=== PATIENT | female | born 1975 | race African-American/Black ===

== ENCOUNTER 2020-04-10 12:29 | Inpatient (IN) ==
[~2020-04-10 12:29] MED LIST: PIPERACILLIN/TAZOBACTAM 3,375 MG in SODIUM CHLORIDE 0.9% 100 ML IV SCH; VANCOMYCIN INJ 2,000 MG in SODIUM CHLORIDE 0.9% 500 ML IV SCH
[2020-04-10] MEDS ORDERED: SODIUM CHLORIDE 0.9% 1,000 ML IV STA (15:34)
[2020-04-10] MEDS ORDERED: PIPERACILLIN/TAZOBACTAM 3,375 MG in SODIUM CHLORIDE 0.9% 100 ML IV STA (16:10)
[2020-04-10 16:41] LABS: Basophils % 0.2 % (0.0-0.8); Eosinophils # 0.2 10*3/uL (0.0-0.87); Eosinophils % 1.4 % (0.00-10.9); Hematocrit 34.5 VOL% (35.7-47.0); Hemoglobin 10.6 GM/DL (12.0-16.0); Immature Granulocytes % 2.9 %; Lymphocytes # 3.4 10*3/uL (1.4-4.0); Lymphocytes % 19.4 % (21.3-54.2); Mean Corpuscular HGB Conc 30.7 GM/DL (32-36); Mean Corpuscular Volume 80.6 FL (87-102); Mean Platelet Volume 8.9 FL (9.6-12.0); Monocytes % 7.6 % (1.7-12.7); Neutrophils % 68.5 % (38.7-73.9); Platelet Count 383 T/CUMM (130-400); Red Blood Count 4.28 MC/CUMM (3.8-5.5); White Blood Count 17.5 T/CUMM (4-12)
[2020-04-10 16:55] LABS: Apearance,Urine CLEAR (Clear); Bacteria,Urine Occasional /HPF (Few); Bilirubin,Urine Negative (Negative); Blood, Urine Moderate mg/dL (Negative); Glucose,Urine (UA) >=500 mg/dL (Negative); Ketones,Urine Negative (Negative); Nitrite,Urine Negative (Negative); Protein,Urine 100 MG/DL; RBC,Urine 7 /HPF (0-4); Squamous Epithelial Cell,Urine Occasional /HPF (0-10); Urine Color Yellow (Yellow); Urine Specific Gravity 1.025 (1.001-1.035); Urine Urobilinogen < 2.0 EU/DL (0.2-1.0); WBC,Urine 5 /HPF (0-6)
[2020-04-10 17:06] LABS: Eosinophils 1 % (0-10); Lymphocytes 18 % (20-55); Macrocytosis 1+; Microcytosis 1+; Polychromasia Few; Segmented Neutrophils 75 % (50-85); Spherocytes 1+; Total Cells Counted 100
[2020-04-10 17:07] LABS: Platelet Estimate Adequate
[2020-04-10 17:37] LABS: Albumin 1.9 G/DL (3.4-5.0); Bilirubin,Total 0.4 MG/DL (0.2-1.0); Calcium 9.2 MG/DL (8.5-10.1); Osmolality,Calculated 272.2 MOS/KG (273-304); Total Protein 8.2 G/DL (6.4-8.3)
[2020-04-10 17:46] LABS: Sedimentation Rate-Westergren 98 MM/HR (0-20)
[2020-04-10] MEDS ORDERED: VANCOMYCIN INJ 1,000 MG in SODIUM CHLORIDE 0.9% 250 ML IV STA (17:49)
[2020-04-10] MEDS ORDERED: DEXTROSE 50% 25 GM/50 ML VIAL IV PRN (17:54)
[2020-04-10] MEDS ORDERED: GLUCAGON 1 MG VIAL IM PRN (17:54)
[2020-04-10] MEDS ORDERED: ACETAMINOPHEN 325 MG TABLET PO PRN (17:54)
[2020-04-10] MEDS ORDERED: ONDANSETRON 4 MG/2 ML VIAL IV PRN (17:54)
[2020-04-10] MEDS ORDERED: VANCOMYCIN INJ 1,000 MG in SODIUM CHLORIDE 0.9% 250 ML IV ONE ×2 (19:00→21:30)
[2020-04-10] MEDS ORDERED: LIDOCAINE 1%/EPI INJ 20 ML VIAL ONE (19:26)
[2020-04-10] MEDS ORDERED: BUPIVACAINE 0.25% /EPI 10 ML VIAL ONE (19:26)
[2020-04-10] MEDS ORDERED: propofoL 200 MG/20 ML VIAL IV ONE (20:08)
[2020-04-10] MEDS ORDERED: KETAMINE 500 MG/10 ML VIAL ONE (20:08)
[2020-04-10] MEDS ORDERED: SODIUM CHLORIDE 0.9% 1,000 ML IV ONE (20:09)
[2020-04-10] MEDS ORDERED: MIDAZOLAM 2 MG/2 ML VIAL ONE (20:09)
[2020-04-10] MEDS ORDERED: fentaNYL 100 MCG/2 ML VIAL ONE (20:09)
[2020-04-10] MEDS ORDERED: SODIUM CHLORIDE 0.9% 100 ML IV ONE (20:09)
[2020-04-10] MEDS: INSULIN REGULAR 100 UNIT/ML SUBCUT SCH (21:54)
[2020-04-10] MEDS: LACTATED RINGERS 1,000 ML IV SCH (21:57)
[2020-04-11] MEDS: PIPERACILLIN/TAZOBACTAM 3,375 MG in SODIUM CHLORIDE 0.9% 100 ML IV SCH ×3 (01:58→22:59)
[2020-04-11 05:17] LABS: Basophils % 0.3 % (0.0-0.8); Eosinophils # 0.2 10*3/uL (0.0-0.87); Eosinophils % 1.8 % (0.00-10.9); Hematocrit 31.7 VOL% (35.7-47.0); Hemoglobin 9.4 GM/DL (12.0-16.0); Immature Granulocytes % 2.1 %; Immature Granulocytes Absolute 0.28 #; Lymphocytes # 3.3 10*3/uL (1.4-4.0); Lymphocytes % 24.9 % (21.3-54.2); Mean Corpuscular HGB Conc 29.7 GM/DL (32-36); Mean Corpuscular Volume 81.1 FL (87-102); Mean Platelet Volume 8.8 FL (9.6-12.0); Neutrophils % 62.9 % (38.7-73.9); Platelet Count 346 T/CUMM (130-400); Red Blood Count 3.91 MC/CUMM (3.8-5.5); Red Cell Distribution Width 15.1 % (9.3-17.3); White Blood Count 13.4 T/CUMM (4-12)
[2020-04-11 05:38] LABS: Eosinophils 1 % (0-10); Hypochromasia 1+; Lymphocytes 24 % (20-55); Platelet Estimate Adequate; Segmented Neutrophils 68 % (50-85); Total Cells Counted 100
[2020-04-11 05:39] LABS: Microcytosis 1+
[2020-04-11 05:48] LABS: Calcium 8.9 MG/DL (8.5-10.1); Osmolality,Calculated 274.8 MOS/KG (273-304)
[2020-04-11] MEDS: LACTATED RINGERS 1,000 ML IV SCH ×3 (07:11→19:12)
[2020-04-11] MEDS ORDERED: MORPHINE 4 MG/1 ML VIAL IV ONE (07:28)
[2020-04-11] MEDS: INSULIN REGULAR 100 UNIT/ML SUBCUT SCH ×5 (07:49→22:58)
[2020-04-11] MEDS ORDERED: SEMAGLUTIDE 0.25 MG SUBCUT SCH (09:15)
[2020-04-11] MEDS: POTASSIUM CHLORIDE 20 MEQ TABLET PO PRN ×4 (09:23→18:42)
[2020-04-11] MEDS: PANTOPRAZOLE 40 MG TABLET PO SCH (09:24)
[2020-04-11] MEDS: VANCOMYCIN INJ 2,000 MG in SODIUM CHLORIDE 0.9% 500 ML IV SCH ×2 (09:24→20:04)
[2020-04-11] MEDS: SODIUM HYPOCHLORITE 0.25% IRRIG 473 ML BOTTLE TOP SCH (10:50)
[2020-04-11] MEDS ORDERED: carvediloL 6.25 MG TABLET PO ONE (14:00)
[2020-04-11] MEDS: LOSARTAN 50 MG TABLET PO SCH (14:34)
[2020-04-11] MEDS: glipiZIDE 10 MG TABLET PO SCH (17:02)
[2020-04-12] MEDS: LACTATED RINGERS 1,000 ML IV SCH ×3 (02:00→16:45)
[2020-04-12 05:29] LABS: Basophils % 0.3 % (0.0-0.8); Eosinophils # 0.4 10*3/uL (0.0-0.87); Eosinophils % 2.8 % (0.00-10.9); Hematocrit 32.4 VOL% (35.7-47.0); Hemoglobin 9.5 GM/DL (12.0-16.0); Immature Granulocytes % 2.2 %; Immature Granulocytes Absolute 0.28 #; Lymphocytes # 3.1 10*3/uL (1.4-4.0); Lymphocytes % 24.3 % (21.3-54.2); Mean Corpuscular HGB Conc 29.3 GM/DL (32-36); Mean Corpuscular Volume 82.4 FL (87-102); Mean Platelet Volume 8.8 FL (9.6-12.0); Monocytes % 6.5 % (1.7-12.7); Neutrophils % 63.9 % (38.7-73.9); Platelet Count 363 T/CUMM (130-400); Red Blood Count 3.93 MC/CUMM (3.8-5.5); Red Cell Distribution Width 15.2 % (9.3-17.3); White Blood Count 12.7 T/CUMM (4-12)
[2020-04-12] MEDS: PIPERACILLIN/TAZOBACTAM 3,375 MG in SODIUM CHLORIDE 0.9% 100 ML IV SCH ×3 (05:47→23:35)
[2020-04-12 05:49] LABS: % Iron Saturation 11.1 % (18-50)
[2020-04-12 05:50] LABS: Risk Ratio 5.05; VLDL CHOLESTEROL 24.2 MG/DL
[2020-04-12 05:55] LABS: Albumin 1.6 G/DL (3.4-5.0); Bilirubin,Total 1.1 MG/DL (0.2-1.0); Ferritin 373.3 ng/ml (8-252); Osmolality,Calculated 276.7 MOS/KG (273-304); Total Protein 7.5 G/DL (6.4-8.3)
[2020-04-12 06:01] LABS: Folate 5.2 NG/ML (5.4-24.0)
[2020-04-12] MEDS: INSULIN REGULAR 100 UNIT/ML SUBCUT SCH ×4 (08:39→21:33)
[2020-04-12] MEDS: MULTIVITAMIN (CENTRUM) TABLET PO SCH (08:40)
[2020-04-12] MEDS: PANTOPRAZOLE 40 MG TABLET PO SCH (08:41)
[2020-04-12] MEDS: LOSARTAN 50 MG TABLET PO SCH (08:41)
[2020-04-12] MEDS: VANCOMYCIN INJ 2,000 MG in SODIUM CHLORIDE 0.9% 500 ML IV SCH ×2 (08:41→21:32)
[2020-04-12] MEDS: carvediloL 6.25 MG TABLET PO SCH ×2 (08:41→16:44)
[2020-04-12] MEDS: glipiZIDE 10 MG TABLET PO SCH ×2 (08:41→16:45)
[2020-04-12] MEDS: SODIUM HYPOCHLORITE 0.25% IRRIG 473 ML BOTTLE TOP SCH (08:42)
[2020-04-12] MEDS ORDERED: NON-FORMULARY MEDICATION (Dapagliflozin [Farxiga] 10 MG) PO SCH (09:00)
[2020-04-12] MEDS ORDERED: IRON SUCROSE 300 MG in SODIUM CHLORIDE 0.9% 100 ML IV ONE (11:00)
[2020-04-12] MEDS: FERROUS SULFATE 325 MG TABLET PO SCH ×2 (11:56→16:45)
[2020-04-13] MEDS: PIPERACILLIN/TAZOBACTAM 3,375 MG in SODIUM CHLORIDE 0.9% 100 ML IV SCH (06:20)
[2020-04-13 06:26] LABS: Basophils % 0.3 % (0.0-0.8); Eosinophils # 0.3 10*3/uL (0.0-0.87); Eosinophils % 2.3 % (0.00-10.9); Hematocrit 30.7 VOL% (35.7-47.0); Hemoglobin 9.3 GM/DL (12.0-16.0); Immature Granulocytes % 2.5 %; Immature Granulocytes Absolute 0.29 #; Lymphocytes # 2.5 10*3/uL (1.4-4.0); Lymphocytes % 21.2 % (21.3-54.2); Mean Corpuscular HGB Conc 30.3 GM/DL (32-36); Mean Corpuscular Volume 80.6 FL (87-102); Mean Platelet Volume 8.8 FL (9.6-12.0); Monocytes % 5.7 % (1.7-12.7); Platelet Count 369 T/CUMM (130-400); Red Blood Count 3.81 MC/CUMM (3.8-5.5); Red Cell Distribution Width 15.3 % (9.3-17.3); White Blood Count 11.7 T/CUMM (4-12)
[2020-04-13 06:41] LABS: Albumin 1.6 G/DL (3.4-5.0); Bilirubin,Total 0.4 MG/DL (0.2-1.0); Calcium 9.2 MG/DL (8.5-10.1); Ferritin 505.1 ng/ml (8-252); Osmolality,Calculated 276.7 MOS/KG (273-304); Total Protein 7.6 G/DL (6.4-8.3)
[2020-04-13] MEDS: LACTATED RINGERS 1,000 ML IV SCH ×3 (07:19→17:18)
[2020-04-13] MEDS: VANCOMYCIN INJ 2,000 MG in SODIUM CHLORIDE 0.9% 500 ML IV SCH ×2 (09:18→20:45)
[2020-04-13] MEDS: PANTOPRAZOLE 40 MG TABLET PO SCH (09:22)
[2020-04-13] MEDS: INSULIN REGULAR 100 UNIT/ML SUBCUT SCH ×4 (09:22→21:44)
[2020-04-13] MEDS: carvediloL 6.25 MG TABLET PO SCH ×2 (09:22→16:37)
[2020-04-13] MEDS: MULTIVITAMIN (CENTRUM) TABLET PO SCH (09:23)
[2020-04-13] MEDS: FERROUS SULFATE 325 MG TABLET PO SCH ×3 (09:23→16:38)
[2020-04-13] MEDS: glipiZIDE 10 MG TABLET PO SCH ×2 (09:23→16:38)
[2020-04-13] MEDS: SODIUM HYPOCHLORITE 0.25% IRRIG 473 ML BOTTLE TOP SCH (09:23)
[2020-04-13] MEDS: LOSARTAN 50 MG TABLET PO SCH (09:45)
[2020-04-14 07:28] LABS: Basophils % 0.2 % (0.0-0.8); Eosinophils # 0.2 10*3/uL (0.0-0.87); Hematocrit 31.3 VOL% (35.7-47.0); Hemoglobin 9.1 GM/DL (12.0-16.0); Immature Granulocytes % 2.3 %; Immature Granulocytes Absolute 0.27 #; Lymphocytes # 2.4 10*3/uL (1.4-4.0); Lymphocytes % 20.1 % (21.3-54.2); Mean Corpuscular HGB Conc 29.1 GM/DL (32-36); Mean Corpuscular Volume 82.4 FL (87-102); Mean Platelet Volume 8.5 FL (9.6-12.0); Monocytes % 6.3 % (1.7-12.7); Neutrophils % 69.1 % (38.7-73.9); Platelet Count 362 T/CUMM (130-400); Red Cell Distribution Width 15.2 % (9.3-17.3); White Blood Count 11.7 T/CUMM (4-12)
[2020-04-14] MEDS: LACTATED RINGERS 1,000 ML IV SCH ×2 (07:43→16:59)
[2020-04-14] MEDS: VANCOMYCIN INJ 2,000 MG in SODIUM CHLORIDE 0.9% 500 ML IV SCH ×2 (07:45→20:17)
[2020-04-14 07:51] LABS: Albumin 1.6 G/DL (3.4-5.0); Bilirubin,Total 1.1 MG/DL (0.2-1.0); Ferritin 695.6 ng/ml (8-252); Osmolality,Calculated 286.3 MOS/KG (273-304); Total Protein 7.5 G/DL (6.4-8.3)
[2020-04-14] MEDS: MULTIVITAMIN (CENTRUM) TABLET PO SCH (08:52)
[2020-04-14] MEDS: FERROUS SULFATE 325 MG TABLET PO SCH ×3 (08:52→16:48)
[2020-04-14] MEDS: carvediloL 6.25 MG TABLET PO SCH ×2 (08:52→16:48)
[2020-04-14] MEDS: LOSARTAN 50 MG TABLET PO SCH (08:52)
[2020-04-14] MEDS: glipiZIDE 10 MG TABLET PO SCH ×2 (08:52→16:48)
[2020-04-14] MEDS: PANTOPRAZOLE 40 MG TABLET PO SCH (08:52)
[2020-04-14] MEDS: INSULIN REGULAR 100 UNIT/ML SUBCUT SCH ×4 (08:52→20:57)
[2020-04-14] MEDS: SODIUM HYPOCHLORITE 0.25% IRRIG 473 ML BOTTLE TOP SCH (08:53)
[2020-04-14] MEDS: COLLAGENASE OINT 30 GM TUBE TOP SCH (14:36)
[2020-04-15] MEDS: LACTATED RINGERS 1,000 ML IV SCH ×3 (01:06→23:06)
[2020-04-15 06:15] LABS: Basophils % 0.3 % (0.0-0.8); Eosinophils # 0.2 10*3/uL (0.0-0.87); Hematocrit 30.5 VOL% (35.7-47.0); Immature Granulocytes Absolute 0.21 #; Lymphocytes # 2.4 10*3/uL (1.4-4.0); Mean Corpuscular HGB Conc 29.5 GM/DL (32-36); Mean Corpuscular Volume 83.1 FL (87-102); Mean Platelet Volume 8.6 FL (9.6-12.0); Neutrophils % 65.7 % (38.7-73.9); Platelet Count 346 T/CUMM (130-400); Red Blood Count 3.67 MC/CUMM (3.8-5.5); White Blood Count 10.3 T/CUMM (4-12)
[2020-04-15 06:56] LABS: Alanine Aminotransferase 18 U/L (13-56); Albumin 1.6 G/DL (3.4-5.0); Alkaline Phosphatase 117 U/L (45-117); Aspartate Amino Transferase 12 U/L (0-37); Bilirubin,Total < 0.39 MG/DL (0.2-1.0); Blood Urea Nitrogen 7 MG/DL (7-18); Calcium 9.1 MG/DL (8.5-10.1); Estimated Glom Filtration Rate 164 ML/MIN; Ferritin 584.5 ng/ml (8-252); Glucose 215 MG/DL (74-106); Osmolality,Calculated 284.3 MOS/KG (273-304); Total Protein 7.3 G/DL (6.4-8.3)
[2020-04-15] MEDS: INSULIN REGULAR 100 UNIT/ML SUBCUT SCH ×4 (08:55→20:06)
[2020-04-15] MEDS: LOSARTAN 50 MG TABLET PO SCH (08:55)
[2020-04-15] MEDS: PANTOPRAZOLE 40 MG TABLET PO SCH (08:55)
[2020-04-15] MEDS: FERROUS SULFATE 325 MG TABLET PO SCH ×3 (08:55→16:18)
[2020-04-15] MEDS: carvediloL 6.25 MG TABLET PO SCH ×2 (08:55→16:18)
[2020-04-15] MEDS: glipiZIDE 10 MG TABLET PO SCH ×2 (08:55→16:18)
[2020-04-15] MEDS: MULTIVITAMIN (CENTRUM) TABLET PO SCH (08:55)
[2020-04-15] MEDS: SODIUM HYPOCHLORITE 0.25% IRRIG 473 ML BOTTLE TOP SCH (08:56)
[2020-04-15] MEDS: COLLAGENASE OINT 30 GM TUBE TOP SCH (08:56)
[2020-04-15] MEDS: VANCOMYCIN INJ 2,000 MG in SODIUM CHLORIDE 0.9% 500 ML IV SCH (14:28)
[2020-04-16] MEDS: VANCOMYCIN INJ 2,000 MG in SODIUM CHLORIDE 0.9% 500 ML IV SCH ×2 (03:09→20:02)
[2020-04-16] MEDS: LACTATED RINGERS 1,000 ML IV SCH ×3 (05:27→18:22)
[2020-04-16 05:40] LABS: Basophils % 0.2 % (0.0-0.8); Eosinophils # 0.2 10*3/uL (0.0-0.87); Eosinophils % 2.3 % (0.00-10.9); Hemoglobin 8.7 GM/DL (12.0-16.0); Immature Granulocytes % 1.8 %; Immature Granulocytes Absolute 0.17 #; Lymphocytes # 2.8 10*3/uL (1.4-4.0); Lymphocytes % 29.4 % (21.3-54.2); Mean Corpuscular Volume 83.6 FL (87-102); Mean Platelet Volume 8.4 FL (9.6-12.0); Monocytes % 6.1 % (1.7-12.7); Neutrophils % 60.2 % (38.7-73.9); Platelet Count 336 T/CUMM (130-400); Red Blood Count 3.59 MC/CUMM (3.8-5.5); Red Cell Distribution Width 15.2 % (9.3-17.3); White Blood Count 9.6 T/CUMM (4-12)
[2020-04-16 06:07] LABS: Alanine Aminotransferase 16 U/L (13-56); Albumin 1.8 G/DL (3.4-5.0); Alkaline Phosphatase 100 U/L (45-117); Aspartate Amino Transferase 13 U/L (0-37); Bilirubin,Total < 0.39 MG/DL (0.2-1.0); Blood Urea Nitrogen 6 MG/DL (7-18); Calcium 8.4 MG/DL (8.5-10.1); Estimated Glom Filtration Rate 173 ML/MIN; Ferritin 525.3 ng/ml (8-252); Glucose 185 MG/DL (74-106); Osmolality,Calculated 283.3 MOS/KG (273-304); Total Protein 6.3 G/DL (6.4-8.3)
[2020-04-16 06:53] LABS: Eosinophils 2 % (0-10); Lymphocytes 23 % (20-55); Segmented Neutrophils 70 % (50-85); Total Cells Counted 100
[2020-04-16 06:54] LABS: Hypochromasia 2+; Platelet Estimate Normal
[2020-04-16] MEDS: glipiZIDE 10 MG TABLET PO SCH ×2 (09:15→16:54)
[2020-04-16] MEDS: POTASSIUM CHLORIDE 20 MEQ TABLET PO PRN ×3 (09:15→16:53)
[2020-04-16] MEDS: INSULIN REGULAR 100 UNIT/ML SUBCUT SCH ×4 (09:15→20:02)
[2020-04-16] MEDS: SODIUM HYPOCHLORITE 0.25% IRRIG 473 ML BOTTLE TOP SCH (09:16)
[2020-04-16] MEDS: MULTIVITAMIN (CENTRUM) TABLET PO SCH (09:16)
[2020-04-16] MEDS: PANTOPRAZOLE 40 MG TABLET PO SCH (09:16)
[2020-04-16] MEDS: carvediloL 6.25 MG TABLET PO SCH ×2 (09:16→16:53)
[2020-04-16] MEDS: LOSARTAN 50 MG TABLET PO SCH (09:16)
[2020-04-16] MEDS: FERROUS SULFATE 325 MG TABLET PO SCH ×3 (09:16→16:53)
[2020-04-16] MEDS: COLLAGENASE OINT 30 GM TUBE TOP SCH (09:16)
[2020-04-17] MEDS: LACTATED RINGERS 1,000 ML IV SCH ×4 (02:14→20:25)
[2020-04-17 03:20] LABS: Basophils % 0.3 % (0.0-0.8); Eosinophils # 0.2 10*3/uL (0.0-0.87); Hemoglobin 8.9 GM/DL (12.0-16.0); Immature Granulocytes % 1.2 %; Immature Granulocytes Absolute 0.12 #; Lymphocytes # 3.2 10*3/uL (1.4-4.0); Lymphocytes % 31.6 % (21.3-54.2); Mean Corpuscular HGB Conc 29.7 GM/DL (32-36); Mean Corpuscular Volume 82.9 FL (87-102); Mean Platelet Volume 8.2 FL (9.6-12.0); Monocytes % 5.4 % (1.7-12.7); Neutrophils % 59.5 % (38.7-73.9); Platelet Count 308 T/CUMM (130-400); Red Blood Count 3.62 MC/CUMM (3.8-5.5); Red Cell Distribution Width 15.1 % (9.3-17.3)
[2020-04-17 03:30] LABS: PT Patient Result 10.9 SECS (9.8-11.9)
[2020-04-17 03:56] LABS: Alanine Aminotransferase 17 U/L (13-56); Albumin 1.7 G/DL (3.4-5.0); Alkaline Phosphatase 94 U/L (45-117); Aspartate Amino Transferase 13 U/L (0-37); Bilirubin,Total < 0.39 MG/DL (0.2-1.0); Blood Urea Nitrogen 5 MG/DL (7-18); Calcium 8.8 MG/DL (8.5-10.1); Estimated Glom Filtration Rate 164 ML/MIN; Ferritin 468.7 ng/ml (8-252); Glucose 184 MG/DL (74-106); Osmolality,Calculated 282.3 MOS/KG (273-304); Total Protein 7.1 G/DL (6.4-8.3)
[2020-04-17 04:04] LABS: Hypochromasia 1+
[2020-04-17 04:05] LABS: Platelet Estimate Normal; Polychromasia Few
[2020-04-17 05:05] LABS: Sedimentation Rate-Westergren 115 MM/HR (0-20)
[2020-04-17] MEDS ORDERED: LIDOCAINE 1% 20 ML VIAL ONE ×2 (08:29→08:31)
[2020-04-17] MEDS: INSULIN REGULAR 100 UNIT/ML SUBCUT SCH ×4 (08:31→20:25)
[2020-04-17] MEDS: HYDROmorphone 2 MG/1 ML VIAL IV PRN ×4 (09:15→09:30)
[2020-04-17] MEDS ORDERED: KETAMINE 500 MG/10 ML VIAL ONE (09:22)
[2020-04-17] MEDS ORDERED: fentaNYL 100 MCG/2 ML VIAL ONE (09:22)
[2020-04-17] MEDS ORDERED: propofoL 200 MG/20 ML VIAL IV ONE (09:22)
[2020-04-17] MEDS ORDERED: MIDAZOLAM 2 MG/2 ML VIAL ONE (09:23)
[2020-04-17] MEDS ORDERED: HYDROmorphone 2 MG/1 ML VIAL ONE (09:23)
[2020-04-17] MEDS ORDERED: LABETALOL 20 MG/4 ML SYRINGE IV ONE (09:53)
[2020-04-17] MEDS: COLLAGENASE OINT 30 GM TUBE TOP SCH (10:07)
[2020-04-17] MEDS: SODIUM HYPOCHLORITE 0.25% IRRIG 473 ML BOTTLE TOP SCH (10:07)
[2020-04-17] MEDS: LOSARTAN 50 MG TABLET PO SCH (10:20)
[2020-04-17] MEDS: glipiZIDE 10 MG TABLET PO SCH ×2 (10:20→16:10)
[2020-04-17] MEDS: FERROUS SULFATE 325 MG TABLET PO SCH ×3 (10:20→16:10)
[2020-04-17] MEDS: carvediloL 6.25 MG TABLET PO SCH ×2 (10:20→16:10)
[2020-04-17] MEDS: PANTOPRAZOLE 40 MG TABLET PO SCH (10:20)
[2020-04-17] MEDS: MULTIVITAMIN (CENTRUM) TABLET PO SCH (10:20)
[2020-04-17] MEDS ORDERED: DEXTROSE 50% 25 GM/50 ML VIAL IV PRN (11:21)
[2020-04-17] MEDS: VANCOMYCIN INJ 2,000 MG in SODIUM CHLORIDE 0.9% 500 ML IV SCH (15:07)
[2020-04-17] MEDS ORDERED: INSULIN GLARGINE 100 UNIT/ML SUBCUT SCH (21:00)
[2020-04-18 05:05] LABS: Basophils % 0.3 % (0.0-0.8); Eosinophils # 0.2 10*3/uL (0.0-0.87); Eosinophils % 2.1 % (0.00-10.9); Hematocrit 27.3 VOL% (35.7-47.0); Immature Granulocytes % 0.7 %; Immature Granulocytes Absolute 0.07 #; Lymphocytes # 2.8 10*3/uL (1.4-4.0); Lymphocytes % 28.5 % (21.3-54.2); Mean Corpuscular HGB Conc 29.3 GM/DL (32-36); Mean Corpuscular Volume 82.2 FL (87-102); Mean Platelet Volume 8.6 FL (9.6-12.0); Monocytes % 5.2 % (1.7-12.7); Neutrophils % 63.2 % (38.7-73.9); Platelet Count 302 T/CUMM (130-400); Red Blood Count 3.32 MC/CUMM (3.8-5.5); Red Cell Distribution Width 15.2 % (9.3-17.3); White Blood Count 9.8 T/CUMM (4-12)
[2020-04-18 05:14] LABS: INR 1.1; PT Patient Result 11.4 SECS (9.8-11.9)
[2020-04-18] MEDS: LACTATED RINGERS 1,000 ML IV SCH (06:05)
[2020-04-18 06:14] LABS: Albumin 1.8 G/DL (3.4-5.0); Bilirubin,Total 0.4 MG/DL (0.2-1.0); Calcium 8.5 MG/DL (8.5-10.1); Ferritin 474.2 ng/ml (8-252); Osmolality,Calculated 285.1 MOS/KG (273-304); Sedimentation Rate-Westergren 118 MM/HR (0-20); Total Protein 6.2 G/DL (6.4-8.3)
[2020-04-18] MEDS: INSULIN REGULAR 100 UNIT/ML SUBCUT SCH ×4 (07:58→21:22)
[2020-04-18] MEDS: glipiZIDE 10 MG TABLET PO SCH ×2 (07:59→17:28)
[2020-04-18] MEDS: PANTOPRAZOLE 40 MG TABLET PO SCH (07:59)
[2020-04-18] MEDS: MULTIVITAMIN (CENTRUM) TABLET PO SCH (07:59)
[2020-04-18] MEDS: LOSARTAN 50 MG TABLET PO SCH (08:00)
[2020-04-18] MEDS: FERROUS SULFATE 325 MG TABLET PO SCH ×3 (08:00→17:28)
[2020-04-18] MEDS: carvediloL 6.25 MG TABLET PO SCH ×2 (08:00→17:29)
[2020-04-18] MEDS: COLLAGENASE OINT 30 GM TUBE TOP SCH (10:15)
[2020-04-18] MEDS: FOLIC ACID 1 MG TABLET PO SCH (10:15)
[2020-04-18] MEDS: SODIUM HYPOCHLORITE 0.25% IRRIG 473 ML BOTTLE TOP SCH (10:15)
[2020-04-18] MEDS: VANCOMYCIN INJ 2,000 MG in SODIUM CHLORIDE 0.9% 500 ML IV SCH (11:37)
[2020-04-18] MEDS: INSULIN GLARGINE 100 UNIT/ML SUBCUT SCH (21:23)
[2020-04-18 23:56] LABS: Specimen Source NASAL
[2020-04-19] MEDS: VANCOMYCIN INJ 2,000 MG in SODIUM CHLORIDE 0.9% 500 ML IV SCH ×2 (03:23→22:49)
[2020-04-19 06:06] LABS: Basophils % 0.3 % (0.0-0.8); Eosinophils # 0.2 10*3/uL (0.0-0.87); Hematocrit 26.4 VOL% (35.7-47.0); Hemoglobin 7.7 GM/DL (12.0-16.0); Immature Granulocytes % 0.8 %; Immature Granulocytes Absolute 0.07 #; Lymphocytes # 3.1 10*3/uL (1.4-4.0); Lymphocytes % 34.5 % (21.3-54.2); Mean Corpuscular HGB Conc 29.2 GM/DL (32-36); Mean Corpuscular Volume 83.5 FL (87-102); Mean Platelet Volume 8.2 FL (9.6-12.0); Monocytes % 4.9 % (1.7-12.7); Neutrophils % 57.5 % (38.7-73.9); Platelet Count 250 T/CUMM (130-400); Red Blood Count 3.16 MC/CUMM (3.8-5.5); Red Cell Distribution Width 15.1 % (9.3-17.3); White Blood Count 8.9 T/CUMM (4-12)
[2020-04-19 06:16] LABS: INR 1.1; PT Patient Result 11.5 SECS (9.8-11.9)
[2020-04-19 06:36] LABS: Hypochromasia 2+; Microcytosis Slight; Platelet Estimate Adequate
[2020-04-19 06:58] LABS: Alanine Aminotransferase 20 U/L (13-56); Albumin 1.7 G/DL (3.4-5.0); Alkaline Phosphatase 95 U/L (45-117); Aspartate Amino Transferase 17 U/L (0-37); Bilirubin,Total < 0.39 MG/DL (0.2-1.0); Blood Urea Nitrogen 5 MG/DL (7-18); Calcium 8.2 MG/DL (8.5-10.1); Estimated Glom Filtration Rate 173 ML/MIN; Ferritin 386.2 ng/ml (8-252); Glucose 144 MG/DL (74-106); Osmolality,Calculated 280.3 MOS/KG (273-304)
[2020-04-19 08:05] LABS: Sedimentation Rate-Westergren 116 MM/HR (0-20)
[2020-04-19] MEDS: MULTIVITAMIN (CENTRUM) TABLET PO SCH (09:45)
[2020-04-19] MEDS: glipiZIDE 10 MG TABLET PO SCH ×2 (09:45→18:12)
[2020-04-19] MEDS: FERROUS SULFATE 325 MG TABLET PO SCH ×3 (09:45→18:12)
[2020-04-19] MEDS: carvediloL 6.25 MG TABLET PO SCH ×2 (09:46→18:12)
[2020-04-19] MEDS: PANTOPRAZOLE 40 MG TABLET PO SCH (09:46)
[2020-04-19] MEDS: INSULIN REGULAR 100 UNIT/ML SUBCUT SCH ×4 (09:46→20:24)
[2020-04-19] MEDS: LOSARTAN 50 MG TABLET PO SCH (09:46)
[2020-04-19] MEDS: FOLIC ACID 1 MG TABLET PO SCH (09:46)
[2020-04-19] MEDS: COLLAGENASE OINT 30 GM TUBE TOP SCH (11:50)
[2020-04-19] MEDS: SODIUM HYPOCHLORITE 0.25% IRRIG 473 ML BOTTLE TOP SCH (11:50)
[2020-04-19] MEDS: INSULIN GLARGINE 100 UNIT/ML SUBCUT SCH (20:21)
[2020-04-20 05:39] LABS: Basophils % 0.5 % (0.0-0.8); Eosinophils # 0.2 10*3/uL (0.0-0.87); Eosinophils % 2.5 % (0.00-10.9); Hematocrit 26.4 VOL% (35.7-47.0); Hemoglobin 7.7 GM/DL (12.0-16.0); Immature Granulocytes % 0.6 %; Lymphocytes # 3.1 10*3/uL (1.4-4.0); Lymphocytes % 36.6 % (21.3-54.2); Mean Corpuscular HGB Conc 29.2 GM/DL (32-36); Mean Corpuscular Volume 82.8 FL (87-102); Monocytes % 4.9 % (1.7-12.7); Neutrophils % 54.9 % (38.7-73.9); Platelet Count 239 T/CUMM (130-400); Red Blood Count 3.19 MC/CUMM (3.8-5.5); Red Cell Distribution Width 15.6 % (9.3-17.3); White Blood Count 8.3 T/CUMM (4-12)
[2020-04-20 05:40] LABS: Immature Granulocytes Absolute 0.05 #
[2020-04-20 06:15] LABS: Albumin 1.8 G/DL (3.4-5.0); Bilirubin,Total 1.2 MG/DL (0.2-1.0); Calcium 8.8 MG/DL (8.5-10.1); Total Protein 6.7 G/DL (6.4-8.3)
[2020-04-20 07:21] LABS: Sedimentation Rate-Westergren 128 MM/HR (0-20)
[2020-04-20 07:49] LABS: Eosinophils 2 % (0-10); Hypochromasia 2+; Lymphocytes 31 % (20-55); Microcytosis Slight; Nucleated Red Blood Cells 1 (0-5); Platelet Estimate Adequate; Segmented Neutrophils 56 % (50-85); Total Cells Counted 100
[2020-04-20] MEDS: INSULIN REGULAR 100 UNIT/ML SUBCUT SCH ×4 (08:29→21:02)
[2020-04-20] MEDS: LOSARTAN 50 MG TABLET PO SCH (08:31)
[2020-04-20] MEDS: carvediloL 6.25 MG TABLET PO SCH ×2 (08:31→16:49)
[2020-04-20] MEDS: glipiZIDE 10 MG TABLET PO SCH ×2 (08:31→16:49)
[2020-04-20] MEDS: MULTIVITAMIN (CENTRUM) TABLET PO SCH (08:31)
[2020-04-20] MEDS: FERROUS SULFATE 325 MG TABLET PO SCH ×3 (08:31→16:49)
[2020-04-20] MEDS: FOLIC ACID 1 MG TABLET PO SCH (08:31)
[2020-04-20] MEDS: PANTOPRAZOLE 40 MG TABLET PO SCH (08:31)
[2020-04-20] MEDS: SODIUM HYPOCHLORITE 0.25% IRRIG 473 ML BOTTLE TOP SCH (11:40)
[2020-04-20] MEDS: COLLAGENASE OINT 30 GM TUBE TOP SCH (11:40)
[2020-04-20] MEDS: VANCOMYCIN INJ 2,000 MG in SODIUM CHLORIDE 0.9% 500 ML IV SCH (15:29)
[2020-04-20] MEDS: INSULIN GLARGINE 100 UNIT/ML SUBCUT SCH (21:03)
[2020-04-21 03:56] LABS: Basophils % 0.4 % (0.0-0.8); Eosinophils # 0.2 10*3/uL (0.0-0.87); Eosinophils % 2.6 % (0.00-10.9); Hematocrit 26.2 VOL% (35.7-47.0); Hemoglobin 7.7 GM/DL (12.0-16.0); Immature Granulocytes % 0.4 %; Immature Granulocytes Absolute 0.03 #; Lymphocytes # 2.7 10*3/uL (1.4-4.0); Mean Corpuscular HGB Conc 29.4 GM/DL (32-36); Mean Corpuscular Volume 82.6 FL (87-102); Mean Platelet Volume 8.4 FL (9.6-12.0); Monocytes % 5.5 % (1.7-12.7); Neutrophils % 59.1 % (38.7-73.9); Platelet Count 233 T/CUMM (130-400); Red Blood Count 3.17 MC/CUMM (3.8-5.5); Red Cell Distribution Width 15.5 % (9.3-17.3); White Blood Count 8.4 T/CUMM (4-12)
[2020-04-21 04:22] LABS: Alanine Aminotransferase 15 U/L (13-56); Albumin 1.7 G/DL (3.4-5.0); Alkaline Phosphatase 83 U/L (45-117); Aspartate Amino Transferase 11 U/L (0-37); Bilirubin,Total < 0.39 MG/DL (0.2-1.0); Blood Urea Nitrogen 6 MG/DL (7-18); Calcium 8.2 MG/DL (8.5-10.1); Estimated Glom Filtration Rate 174 ML/MIN; Glucose 141 MG/DL (74-106); Osmolality,Calculated 282.1 MOS/KG (273-304); Total Protein 6.4 G/DL (6.4-8.3)
[2020-04-21 06:59] LABS: Sedimentation Rate-Westergren 105 MM/HR (0-20)
[2020-04-21] MEDS: LOSARTAN 50 MG TABLET PO SCH (08:32)
[2020-04-21] MEDS: carvediloL 6.25 MG TABLET PO SCH ×2 (08:32→16:32)
[2020-04-21] MEDS: FOLIC ACID 1 MG TABLET PO SCH (08:32)
[2020-04-21] MEDS: FERROUS SULFATE 325 MG TABLET PO SCH ×3 (08:32→16:31)
[2020-04-21] MEDS: MULTIVITAMIN (CENTRUM) TABLET PO SCH (08:32)
[2020-04-21] MEDS: glipiZIDE 10 MG TABLET PO SCH ×2 (08:32→16:31)
[2020-04-21] MEDS: PANTOPRAZOLE 40 MG TABLET PO SCH (08:32)
[2020-04-21] MEDS: SODIUM HYPOCHLORITE 0.25% IRRIG 473 ML BOTTLE TOP SCH (09:17)
[2020-04-21] MEDS: COLLAGENASE OINT 30 GM TUBE TOP SCH (09:18)
[2020-04-21] MEDS: INSULIN REGULAR 100 UNIT/ML SUBCUT SCH ×4 (09:27→20:58)
[2020-04-21] MEDS: VANCOMYCIN INJ 2,000 MG in SODIUM CHLORIDE 0.9% 500 ML IV SCH (09:48)
[2020-04-21] MEDS: INSULIN GLARGINE 100 UNIT/ML SUBCUT SCH (20:59)
[2020-04-22] MEDS: VANCOMYCIN INJ 2,000 MG in SODIUM CHLORIDE 0.9% 500 ML IV SCH ×2 (03:02→21:17)
[2020-04-22] MEDS: glipiZIDE 10 MG TABLET PO SCH ×2 (09:08→16:56)
[2020-04-22] MEDS: carvediloL 6.25 MG TABLET PO SCH ×2 (09:08→16:56)
[2020-04-22] MEDS: INSULIN REGULAR 100 UNIT/ML SUBCUT SCH ×4 (09:08→20:25)
[2020-04-22] MEDS: PANTOPRAZOLE 40 MG TABLET PO SCH (09:08)
[2020-04-22] MEDS: MULTIVITAMIN (CENTRUM) TABLET PO SCH (09:08)
[2020-04-22] MEDS: FOLIC ACID 1 MG TABLET PO SCH (09:08)
[2020-04-22] MEDS: SODIUM HYPOCHLORITE 0.25% IRRIG 473 ML BOTTLE TOP SCH (09:08)
[2020-04-22] MEDS: LOSARTAN 50 MG TABLET PO SCH (09:08)
[2020-04-22] MEDS: FERROUS SULFATE 325 MG TABLET PO SCH ×3 (09:08→16:56)
[2020-04-22] MEDS: COLLAGENASE OINT 30 GM TUBE TOP SCH (09:08)
[2020-04-22] MEDS: INSULIN GLARGINE 100 UNIT/ML SUBCUT SCH (20:26)
[2020-04-23] MEDS: INSULIN REGULAR 100 UNIT/ML SUBCUT SCH ×4 (07:52→20:09)
[2020-04-23] MEDS: PANTOPRAZOLE 40 MG TABLET PO SCH (09:13)
[2020-04-23] MEDS: glipiZIDE 10 MG TABLET PO SCH ×2 (09:13→16:43)
[2020-04-23] MEDS: LOSARTAN 50 MG TABLET PO SCH (09:13)
[2020-04-23] MEDS: carvediloL 6.25 MG TABLET PO SCH ×2 (09:13→16:43)
[2020-04-23] MEDS: MULTIVITAMIN (CENTRUM) TABLET PO SCH (09:13)
[2020-04-23] MEDS: SODIUM HYPOCHLORITE 0.25% IRRIG 473 ML BOTTLE TOP SCH (09:13)
[2020-04-23] MEDS: COLLAGENASE OINT 30 GM TUBE TOP SCH (09:13)
[2020-04-23] MEDS: FOLIC ACID 1 MG TABLET PO SCH (09:13)
[2020-04-23] MEDS: FERROUS SULFATE 325 MG TABLET PO SCH ×3 (09:13→16:43)
[2020-04-23] MEDS: VANCOMYCIN INJ 2,000 MG in SODIUM CHLORIDE 0.9% 500 ML IV SCH (12:06)
[2020-04-23] MEDS: INSULIN GLARGINE 100 UNIT/ML SUBCUT SCH (21:00)
[2020-04-24] MEDS: VANCOMYCIN INJ 2,000 MG in SODIUM CHLORIDE 0.9% 500 ML IV SCH ×3 (00:24→21:58)
[2020-04-24 04:49] LABS: Calcium 8.6 MG/DL (8.5-10.1); Osmolality,Calculated 281.1 MOS/KG (273-304)
[2020-04-24] MEDS: INSULIN REGULAR 100 UNIT/ML SUBCUT SCH ×4 (08:55→22:13)
[2020-04-24] MEDS: MULTIVITAMIN (CENTRUM) TABLET PO SCH (08:56)
[2020-04-24] MEDS: carvediloL 6.25 MG TABLET PO SCH ×2 (08:56→16:38)
[2020-04-24] MEDS: PANTOPRAZOLE 40 MG TABLET PO SCH (08:56)
[2020-04-24] MEDS: glipiZIDE 10 MG TABLET PO SCH ×2 (08:56→17:14)
[2020-04-24] MEDS: SODIUM HYPOCHLORITE 0.25% IRRIG 473 ML BOTTLE TOP SCH (08:56)
[2020-04-24] MEDS: FERROUS SULFATE 325 MG TABLET PO SCH ×3 (08:56→16:38)
[2020-04-24] MEDS: LOSARTAN 50 MG TABLET PO SCH (08:56)
[2020-04-24] MEDS: FOLIC ACID 1 MG TABLET PO SCH (08:56)
[2020-04-24] MEDS: COLLAGENASE OINT 30 GM TUBE TOP SCH (08:57)
[2020-04-24] MEDS: INSULIN GLARGINE 100 UNIT/ML SUBCUT SCH (22:13)
[2020-04-25] MEDS: VANCOMYCIN INJ 2,000 MG in SODIUM CHLORIDE 0.9% 500 ML IV SCH (09:08)
[2020-04-25] MEDS: PANTOPRAZOLE 40 MG TABLET PO SCH (09:09)
[2020-04-25] MEDS: FERROUS SULFATE 325 MG TABLET PO SCH ×2 (09:09→12:13)
[2020-04-25] MEDS: FOLIC ACID 1 MG TABLET PO SCH (09:09)
[2020-04-25] MEDS: MULTIVITAMIN (CENTRUM) TABLET PO SCH (09:09)
[2020-04-25] MEDS: glipiZIDE 10 MG TABLET PO SCH (09:09)
[2020-04-25] MEDS: carvediloL 6.25 MG TABLET PO SCH (09:09)
[2020-04-25] MEDS: LOSARTAN 50 MG TABLET PO SCH (09:09)
[2020-04-25] MEDS: SODIUM HYPOCHLORITE 0.25% IRRIG 473 ML BOTTLE TOP SCH (09:09)
[2020-04-25] MEDS: COLLAGENASE OINT 30 GM TUBE TOP SCH (09:10)
[2020-04-25] MEDS: INSULIN REGULAR 100 UNIT/ML SUBCUT SCH ×2 (09:10→12:12)
[2020-04-25 11:39] VITALS: BP 140/79
== END 2020-04-25 14:45 | DRG 907 ==
LOC: N.ED 12:29 → N.EDINP 17:54 → N.2E 20:30
PROVIDERS: ADMIT Surgery; ATTEND Surgery

== ENCOUNTER 2020-08-06 15:11 | Inpatient (IN) ==
[2020-08-06 16:32] LABS: Basophils % 0.1 % (0.0-0.8); Eosinophils # 0.1 10*3/uL (0.0-0.87); Eosinophils % 0.6 % (0.00-10.9); Hematocrit 23.7 VOL% (35.7-47.0); Hemoglobin 7.2 GM/DL (12.0-16.0); Immature Granulocytes % 1.3 %; Immature Granulocytes Absolute 0.23 #; Lymphocytes # 1.8 10*3/uL (1.4-4.0); Lymphocytes % 10.2 % (21.3-54.2); Mean Corpuscular HGB Conc 30.4 GM/DL (32-36); Mean Corpuscular Volume 70.3 FL (87-102); Mean Platelet Volume 8.6 FL (9.6-12.0); Monocytes % 4.5 % (1.7-12.7); Neutrophils % 83.3 % (38.7-73.9); Platelet Count 431 T/CUMM (130-400); Red Blood Count 3.37 MC/CUMM (3.8-5.5); Red Cell Distribution Width 17.2 % (9.3-17.3)
[2020-08-06 16:50] LABS: Calcium 8.7 MG/DL (8.5-10.1); Osmolality,Calculated 281.4 MOS/KG (273-304)
[2020-08-06 17:01] LABS: Lymphocytes 7 % (20-55); Segmented Neutrophils 88 % (50-85); Total Cells Counted 100
[2020-08-06] MEDS ORDERED: ACETAMINOPHEN 500 MG TABLET PO STA (17:01)
[2020-08-06 17:02] LABS: Anisocytosis Slight; Hypochromasia 1+; Platelet Estimate Adequate; Polychromasia Few
[2020-08-06] MEDS ORDERED: PIPERACILLIN/TAZOBACTAM 3,375 MG in SODIUM CHLORIDE 0.9% 100 ML IV STA (17:28)
[2020-08-06 17:35] LABS: Sedimentation Rate-Westergren 130 MM/HR (0-20)
[2020-08-06] MEDS ORDERED: DEXTROSE 50% 25 GM/50 ML VIAL IV PRN (18:18)
[2020-08-06] MEDS ORDERED: GLUCAGON 1 MG VIAL IM PRN (18:18)
[2020-08-06] MEDS ORDERED: ENOXAPARIN 40 MG/0.4 ML SYRINGE SUBCUT SCH (21:00)
[2020-08-06] MEDS: SODIUM CHLORIDE 0.9% 1,000 ML IV SCH (22:07)
[2020-08-06] MEDS: INSULIN GLARGINE 100 UNIT/ML SUBCUT SCH (22:07)
[2020-08-06] MEDS: carvediloL 3.125 MG TABLET PO SCH (22:07)
[2020-08-06] MEDS: VANCOMYCIN INJ 2,000 MG in SODIUM CHLORIDE 0.9% 500 ML IV SCH (22:10)
[2020-08-06] MEDS: INSULIN REGULAR 100 UNIT/ML SUBCUT SCH (22:20)
[2020-08-06] MEDS: INSULIN LISPRO 100 UNIT/ML SUBCUT SCH (22:22)
[2020-08-07] MEDS: PIPERACILLIN/TAZOBACTAM 3,375 MG in SODIUM CHLORIDE 0.9% 100 ML IV SCH ×3 (02:51→19:18)
[2020-08-07 05:47] LABS: Basophils % 0.2 % (0.0-0.8); Eosinophils # 0.1 10*3/uL (0.0-0.87); Eosinophils % 0.6 % (0.00-10.9); Hematocrit 21.1 VOL% (35.7-47.0); Immature Granulocytes % 1.1 %; Immature Granulocytes Absolute 0.18 #; Lymphocytes # 2.3 10*3/uL (1.4-4.0); Lymphocytes % 13.3 % (21.3-54.2); Mean Corpuscular HGB Conc 30.3 GM/DL (32-36); Mean Corpuscular Volume 70.8 FL (87-102); Mean Platelet Volume 8.8 FL (9.6-12.0); Monocytes % 4.4 % (1.7-12.7); Neutrophils % 80.4 % (38.7-73.9); Platelet Count 414 T/CUMM (130-400); Red Blood Count 2.98 MC/CUMM (3.8-5.5); Red Cell Distribution Width 17.3 % (9.3-17.3)
[2020-08-07 05:59] LABS: Hemoglobin 6.4 GM/DL (12.0-16.0)
[2020-08-07 06:08] LABS: Calcium 8.7 MG/DL (8.5-10.1); Osmolality,Calculated 281.8 MOS/KG (273-304)
[2020-08-07] MEDS ORDERED: SODIUM CHLORIDE 0.9% 1,000 ML IV PRN (06:40)
[2020-08-07] MEDS ORDERED: ACETAMINOPHEN 325 MG TABLET PO PRN (08:57)
[2020-08-07] MEDS: carvediloL 3.125 MG TABLET PO SCH ×2 (09:02→21:59)
[2020-08-07] MEDS: PANTOPRAZOLE 40 MG TABLET PO SCH (09:02)
[2020-08-07] MEDS: INSULIN LISPRO 100 UNIT/ML SUBCUT SCH ×4 (09:02→21:59)
[2020-08-07] MEDS: LOSARTAN 50 MG TABLET PO SCH (09:02)
[2020-08-07] MEDS: FERROUS SULFATE 325 MG TABLET PO SCH ×3 (09:02→19:18)
[2020-08-07] MEDS: INSULIN REGULAR 100 UNIT/ML SUBCUT SCH ×4 (09:03→21:59)
[2020-08-07] MEDS: ONDANSETRON 4 MG/2 ML VIAL IV PRN (10:48)
[2020-08-07] MEDS: SODIUM HYPOCHLORITE 0.25% IRRIG 473 ML BOTTLE TOP SCH (11:55)
[2020-08-07] MEDS: VANCOMYCIN INJ 2,000 MG in SODIUM CHLORIDE 0.9% 500 ML IV SCH (17:11)
[2020-08-07] MEDS: INSULIN GLARGINE 100 UNIT/ML SUBCUT SCH (22:00)
[2020-08-07 22:31] LABS: Hematocrit 26.5 VOL% (35.7-47.0)
[2020-08-07 22:33] LABS: Hemoglobin 8.2 GM/DL (12.0-16.0)
[2020-08-08] MEDS: VANCOMYCIN INJ 2,000 MG in SODIUM CHLORIDE 0.9% 500 ML IV SCH ×2 (00:19→09:47)
[2020-08-08] MEDS: SODIUM CHLORIDE 0.9% 1,000 ML IV SCH ×4 (02:01→21:00)
[2020-08-08] MEDS: PIPERACILLIN/TAZOBACTAM 3,375 MG in SODIUM CHLORIDE 0.9% 100 ML IV SCH ×3 (03:17→20:59)
[2020-08-08] MEDS ORDERED: propofoL 200 MG/20 ML VIAL IV ONE (06:37)
[2020-08-08] MEDS ORDERED: LIDOCAINE 2% 5 ML VIAL ONE (06:37)
[2020-08-08] MEDS ORDERED: fentaNYL 100 MCG/2 ML VIAL ONE (06:37)
[2020-08-08] MEDS ORDERED: MIDAZOLAM 2 MG/2 ML VIAL ONE ×2 (06:37→07:07)
[2020-08-08] MEDS ORDERED: DEXMEDETOMIDINE 200 MCG/2 ML VIAL ONE (07:03)
[2020-08-08] MEDS ORDERED: KETAMINE 500 MG/10 ML VIAL ONE (07:08)
[2020-08-08 07:12] LABS: Basophils % 0.2 % (0.0-0.8); Eosinophils # 0.4 10*3/uL (0.0-0.87); Eosinophils % 2.2 % (0.00-10.9); Hematocrit 25.1 VOL% (35.7-47.0); Hemoglobin 7.7 GM/DL (12.0-16.0); Immature Granulocytes % 1.4 %; Immature Granulocytes Absolute 0.25 #; Lymphocytes # 2.2 10*3/uL (1.4-4.0); Lymphocytes % 12.6 % (21.3-54.2); Mean Corpuscular HGB Conc 30.7 GM/DL (32-36); Mean Corpuscular Volume 74.3 FL (87-102); Mean Platelet Volume 8.5 FL (9.6-12.0); Monocytes % 4.1 % (1.7-12.7); Neutrophils % 79.5 % (38.7-73.9); Platelet Count 402 T/CUMM (130-400); Red Blood Count 3.38 MC/CUMM (3.8-5.5); Red Cell Distribution Width 17.9 % (9.3-17.3); White Blood Count 17.7 T/CUMM (4-12)
[2020-08-08] MEDS ORDERED: ONDANSETRON 4 MG/2 ML VIAL ONE (07:12)
[2020-08-08 07:28] LABS: Calcium 8.7 MG/DL (8.5-10.1); Osmolality,Calculated 278.7 MOS/KG (273-304)
[2020-08-08] MEDS: carvediloL 3.125 MG TABLET PO SCH ×2 (09:46→20:57)
[2020-08-08] MEDS: FERROUS SULFATE 325 MG TABLET PO SCH ×3 (09:46→16:30)
[2020-08-08] MEDS: PANTOPRAZOLE 40 MG TABLET PO SCH (09:46)
[2020-08-08] MEDS: LOSARTAN 50 MG TABLET PO SCH (09:46)
[2020-08-08] MEDS: INSULIN LISPRO 100 UNIT/ML SUBCUT SCH ×4 (09:47→21:00)
[2020-08-08] MEDS: INSULIN REGULAR 100 UNIT/ML SUBCUT SCH ×4 (09:47→20:59)
[2020-08-08] MEDS: SODIUM HYPOCHLORITE 0.25% IRRIG 473 ML BOTTLE TOP SCH (10:31)
[2020-08-08] MEDS: ONDANSETRON 4 MG/2 ML VIAL IV PRN (12:55)
[2020-08-08] MEDS: INSULIN GLARGINE 100 UNIT/ML SUBCUT SCH (20:58)
[2020-08-09] MEDS: PIPERACILLIN/TAZOBACTAM 3,375 MG in SODIUM CHLORIDE 0.9% 100 ML IV SCH (05:48)
[2020-08-09] MEDS: SODIUM CHLORIDE 0.9% 1,000 ML IV SCH ×2 (05:49→19:06)
[2020-08-09 06:38] LABS: Calcium 8.5 MG/DL (8.5-10.1); Osmolality,Calculated 281.8 MOS/KG (273-304)
[2020-08-09] MEDS: LOSARTAN 50 MG TABLET PO SCH (09:06)
[2020-08-09] MEDS: PANTOPRAZOLE 40 MG TABLET PO SCH (09:06)
[2020-08-09] MEDS: carvediloL 3.125 MG TABLET PO SCH ×2 (09:06→20:52)
[2020-08-09] MEDS: FERROUS SULFATE 325 MG TABLET PO SCH ×3 (09:06→16:49)
[2020-08-09] MEDS: INSULIN REGULAR 100 UNIT/ML SUBCUT SCH ×4 (09:07→21:00)
[2020-08-09] MEDS: SODIUM HYPOCHLORITE 0.25% IRRIG 473 ML BOTTLE TOP SCH (09:07)
[2020-08-09] MEDS: INSULIN LISPRO 100 UNIT/ML SUBCUT SCH ×4 (09:07→21:00)
[2020-08-09] MEDS: cefTRIAXone 2,000 MG in SYRINGE 1 EACH IV SCH (15:03)
[2020-08-09] MEDS: INSULIN GLARGINE 100 UNIT/ML SUBCUT SCH (21:00)
[2020-08-10] MEDS: SODIUM CHLORIDE 0.9% 1,000 ML IV SCH ×2 (03:30→11:45)
[2020-08-10 06:22] LABS: Basophils % 0.2 % (0.0-0.8); Eosinophils # 0.4 10*3/uL (0.0-0.87); Eosinophils % 2.5 % (0.00-10.9); Hematocrit 21.1 VOL% (35.7-47.0); Immature Granulocytes % 1.3 %; Immature Granulocytes Absolute 0.21 #; Lymphocytes % 11.8 % (21.3-54.2); Mean Corpuscular HGB Conc 29.9 GM/DL (32-36); Mean Corpuscular Volume 75.9 FL (87-102); Mean Platelet Volume 8.9 FL (9.6-12.0); Monocytes % 4.8 % (1.7-12.7); Neutrophils % 79.4 % (38.7-73.9); Platelet Count 367 T/CUMM (130-400); Red Blood Count 2.78 MC/CUMM (3.8-5.5); White Blood Count 16.7 T/CUMM (4-12)
[2020-08-10 06:25] LABS: Hemoglobin 6.3 GM/DL (12.0-16.0)
[2020-08-10 06:36] LABS: Calcium 8.2 MG/DL (8.5-10.1); Osmolality,Calculated 285.5 MOS/KG (273-304)
[2020-08-10 06:42] LABS: Hypochromasia 2+; Microcytosis 1+; Ovalocytes Slight; Platelet Estimate Adequate
[2020-08-10] MEDS: LOSARTAN 50 MG TABLET PO SCH (11:44)
[2020-08-10] MEDS: FERROUS SULFATE 325 MG TABLET PO SCH ×3 (11:44→19:18)
[2020-08-10] MEDS: PANTOPRAZOLE 40 MG TABLET PO SCH (11:44)
[2020-08-10] MEDS: carvediloL 3.125 MG TABLET PO SCH ×2 (11:44→20:37)
[2020-08-10] MEDS: SODIUM HYPOCHLORITE 0.25% IRRIG 473 ML BOTTLE TOP SCH (11:45)
[2020-08-10] MEDS: INSULIN LISPRO 100 UNIT/ML SUBCUT SCH ×4 (11:58→22:16)
[2020-08-10] MEDS: INSULIN REGULAR 100 UNIT/ML SUBCUT SCH ×4 (11:59→22:16)
[2020-08-10] MEDS: cefTRIAXone 2,000 MG in SYRINGE 1 EACH IV SCH (15:12)
[2020-08-10] MEDS: INSULIN GLARGINE 100 UNIT/ML SUBCUT SCH (22:16)
[2020-08-11] MEDS: SODIUM CHLORIDE 0.9% 1,000 ML IV SCH ×5 (00:06→21:46)
[2020-08-11 06:29] LABS: Basophils % 0.2 % (0.0-0.8); Eosinophils # 0.5 10*3/uL (0.0-0.87); Hematocrit 27.2 VOL% (35.7-47.0); Hemoglobin 8.3 GM/DL (12.0-16.0); Immature Granulocytes Absolute 0.34 #; Lymphocytes % 11.7 % (21.3-54.2); Mean Corpuscular HGB Conc 30.5 GM/DL (32-36); Mean Corpuscular Volume 78.2 FL (87-102); Mean Platelet Volume 8.6 FL (9.6-12.0); Monocytes % 5.3 % (1.7-12.7); Neutrophils % 77.8 % (38.7-73.9); Platelet Count 369 T/CUMM (130-400); Red Blood Count 3.48 MC/CUMM (3.8-5.5); Red Cell Distribution Width 19.1 % (9.3-17.3); White Blood Count 17.1 T/CUMM (4-12)
[2020-08-11 06:59] LABS: Calcium 8.4 MG/DL (8.5-10.1)
[2020-08-11] MEDS: INSULIN REGULAR 100 UNIT/ML SUBCUT SCH ×4 (07:29→21:00)
[2020-08-11] MEDS: INSULIN LISPRO 100 UNIT/ML SUBCUT SCH ×4 (07:41→20:59)
[2020-08-11] MEDS: carvediloL 3.125 MG TABLET PO SCH ×2 (08:13→20:59)
[2020-08-11] MEDS: PANTOPRAZOLE 40 MG TABLET PO SCH (08:13)
[2020-08-11] MEDS: SODIUM HYPOCHLORITE 0.25% IRRIG 473 ML BOTTLE TOP SCH (08:13)
[2020-08-11] MEDS: LOSARTAN 50 MG TABLET PO SCH (08:13)
[2020-08-11] MEDS: FERROUS SULFATE 325 MG TABLET PO SCH ×3 (08:13→17:10)
[2020-08-11] MEDS: cefTRIAXone 2,000 MG in SYRINGE 1 EACH IV SCH (13:22)
[2020-08-11] MEDS: INSULIN GLARGINE 100 UNIT/ML SUBCUT SCH (21:00)
[2020-08-11] MEDS ORDERED: diphenhydrAMINE CAP 25 MG CAPSULE PO PRN (22:59)
[2020-08-12] MEDS: SODIUM CHLORIDE 0.9% 1,000 ML IV SCH ×3 (04:29→12:28)
[2020-08-12 05:49] LABS: Basophils % 0.2 % (0.0-0.8); Eosinophils # 0.5 10*3/uL (0.0-0.87); Hematocrit 27.7 VOL% (35.7-47.0); Hemoglobin 8.4 GM/DL (12.0-16.0); Immature Granulocytes % 2.5 %; Immature Granulocytes Absolute 0.46 #; Lymphocytes # 2.5 10*3/uL (1.4-4.0); Lymphocytes % 13.7 % (21.3-54.2); Mean Corpuscular HGB Conc 30.3 GM/DL (32-36); Mean Corpuscular Volume 78.5 FL (87-102); Mean Platelet Volume 8.3 FL (9.6-12.0); Neutrophils % 75.6 % (38.7-73.9); Platelet Count 380 T/CUMM (130-400); Red Blood Count 3.53 MC/CUMM (3.8-5.5); Red Cell Distribution Width 19.5 % (9.3-17.3); White Blood Count 18.2 T/CUMM (4-12)
[2020-08-12 06:07] LABS: Calcium 8.3 MG/DL (8.5-10.1); Osmolality,Calculated 284.7 MOS/KG (273-304)
[2020-08-12 07:51] LABS: Anisocytosis 2+; Band Neutrophils 10 % (0-10); Eosinophils 3 % (0-10); Lymphocytes 13 % (20-55); Platelet Estimate Normal; Poikilocytosis Slight; Segmented Neutrophils 72 % (50-85); Total Cells Counted 100
[2020-08-12 07:52] LABS: Polychromasia Slight
[2020-08-12] MEDS: INSULIN REGULAR 100 UNIT/ML SUBCUT SCH ×2 (08:41→12:27)
[2020-08-12] MEDS: INSULIN LISPRO 100 UNIT/ML SUBCUT SCH ×2 (08:49→12:27)
[2020-08-12] MEDS: PANTOPRAZOLE 40 MG TABLET PO SCH (08:49)
[2020-08-12] MEDS: LOSARTAN 50 MG TABLET PO SCH (08:49)
[2020-08-12] MEDS: FERROUS SULFATE 325 MG TABLET PO SCH ×2 (08:49→12:28)
[2020-08-12] MEDS: carvediloL 3.125 MG TABLET PO SCH (08:49)
[2020-08-12] MEDS: SODIUM HYPOCHLORITE 0.25% IRRIG 473 ML BOTTLE TOP SCH (08:50)
[2020-08-12 10:28] LABS: Calcium 8.3 MG/DL (8.5-10.1); Osmolality,Calculated 289.8 MOS/KG (273-304)
[2020-08-12 12:51] VITALS: BP 110/60
[2020-08-12] MEDS: cefTRIAXone 2,000 MG in SYRINGE 1 EACH IV SCH (14:11)
== END 2020-08-12 14:54 | disposition home health service (06) | DRG 623 ==
LOC: N.ED 15:11 → N.EDINP 18:18 → N.3E 18:55
PROVIDERS: ADMIT Internal Medicine; ATTEND Internal Medicine

== ENCOUNTER 2020-09-17 14:18 | Inpatient (IN) ==
[2020-09-17 19:29] LABS: Basophils % 0.1 % (0.0-0.8); Eosinophils # 0.1 10*3/uL (0.0-0.87); Eosinophils % 0.8 % (0.00-10.9); Hematocrit 21.3 VOL% (35.7-47.0); Immature Granulocytes % 1.2 %; Immature Granulocytes Absolute 0.19 #; Lymphocytes # 1.8 10*3/uL (1.4-4.0); Lymphocytes % 11.5 % (21.3-54.2); Mean Corpuscular HGB Conc 28.6 GM/DL (32-36); Mean Corpuscular Volume 76.9 FL (87-102); Mean Platelet Volume 7.8 FL (9.6-12.0); Monocytes % 5.6 % (1.7-12.7); Neutrophils % 80.8 % (38.7-73.9); Platelet Count 329 T/CUMM (130-400); Red Blood Count 2.77 MC/CUMM (3.8-5.5); Red Cell Distribution Width 18.6 % (9.3-17.3); White Blood Count 15.6 T/CUMM (4-12)
[2020-09-17 19:36] LABS: Hemoglobin 6.1 GM/DL (12.0-16.0)
[2020-09-17 19:51] LABS: Alanine Aminotransferase 15 U/L (13-56); Albumin 1.7 G/DL (3.4-5.0); Alkaline Phosphatase 190 U/L (45-117); Anisocytosis 1+; Aspartate Amino Transferase 12 U/L (0-37); Bilirubin,Total < 0.39 MG/DL (0.2-1.0); Blood Urea Nitrogen 12 MG/DL (7-18); Calcium 8.5 MG/DL (8.5-10.1); Carbon Dioxide 20 MMOL/L (21-32); Elliptocytes Few; Eosinophils 1 % (0-10); Estimated Glom Filtration Rate 76 ML/MIN; Glucose 329 MG/DL (74-106); Hypochromasia 1+; Lymphocytes 11 % (20-55); Nucleated Red Blood Cells 2 (0-5); Osmolality,Calculated 278.4 MOS/KG (273-304); Platelet Estimate Adequate; Polychromasia Few; Potassium 3.5 MMOL/L (3.5-5.1); Segmented Neutrophils 83 % (50-85); Sodium 133 MMOL/L (136-145); Total Cells Counted 100; Total Protein 7.7 G/DL (6.4-8.3)
[2020-09-17 20:11] LABS: Bilirubin,Urine Negative (Negative); Blood, Urine Moderate mg/dL (Negative); Glucose,Urine (UA) >=500 mg/dL (Negative); Ketones,Urine Negative (Negative); Nitrite,Urine Negative (Negative); Protein,Urine 30 MG/DL; Urine Appearance CLOUDY (Clear); Urine Color Yellow (Yellow); Urine Urobilinogen < 2.0 EU/DL (0.2-1.0)
[2020-09-17 20:26] LABS: Squamous Epithelial Cell,Urine Moderate /HPF (0-10)
[2020-09-17 20:27] LABS: Bacteria,Urine Moderate /HPF (Few)
[2020-09-18] MEDS ORDERED: SODIUM CHLORIDE 0.9% 1,000 ML IV PRN (00:24)
[2020-09-18] MEDS ORDERED: cloNIDine 0.1 MG TABLET PO PRN (00:33)
[2020-09-18] MEDS ORDERED: DEXTROSE 50% 25 GM/50 ML VIAL IV PRN ×2 (00:34→12:08)
[2020-09-18] MEDS ORDERED: GLUCAGON 1 MG VIAL IM PRN ×2 (00:34→12:08)
[2020-09-18] MEDS ORDERED: hydrALAZINE 20 MG/1 ML VIAL IV PRN (00:34)
[2020-09-18] MEDS ORDERED: DOCUSATE SODIUM 100 MG CAPSULE PO PRN (00:34)
[2020-09-18] MEDS ORDERED: PIPERACILLIN/TAZOBACTAM 3,375 MG in SODIUM CHLORIDE 0.9% 100 ML IV SCH (01:00)
[2020-09-18] MEDS ORDERED: INSULIN REGULAR 100 UNIT/ML SUBCUT ONE (01:05)
[2020-09-18] MEDS: SODIUM CHLORIDE 0.9% 1,000 ML IV SCH ×2 (01:23→14:19)
[2020-09-18] MEDS: PIPERACILLIN/TAZOBACTAM 3,375 MG in SODIUM CHLORIDE 0.9% 100 ML IV SCH ×3 (01:29→17:16)
[2020-09-18] MEDS: ACETAMINOPHEN 325 MG TABLET PO PRN ×2 (04:49→15:28)
[2020-09-18 06:13] LABS: Albumin 1.4 G/DL (3.4-5.0); Bilirubin,Total 0.7 MG/DL (0.2-1.0); Calcium 8.2 MG/DL (8.5-10.1); Osmolality,Calculated 278.4 MOS/KG (273-304); Potassium 3.8 MMOL/L (3.5-5.1); Total Protein 7.2 G/DL (6.4-8.3)
[2020-09-18] MEDS: CLINDAMYCIN INJ 900 MG in PREMIX 1 EACH IV SCH ×3 (06:32→21:38)
[2020-09-18 07:51] LABS: Basophils % 0.1 % (0.0-0.8); Eosinophils # 0.1 10*3/uL (0.0-0.87); Eosinophils % 0.6 % (0.00-10.9); Hematocrit 18.2 VOL% (35.7-47.0); Immature Granulocytes Absolute 0.13 #; Lymphocytes # 1.8 10*3/uL (1.4-4.0); Lymphocytes % 13.5 % (21.3-54.2); Mean Corpuscular HGB Conc 29.1 GM/DL (32-36); Mean Corpuscular Volume 75.8 FL (87-102); Mean Platelet Volume 8.1 FL (9.6-12.0); Monocytes % 5.5 % (1.7-12.7); Neutrophils % 79.3 % (38.7-73.9); Platelet Count 302 T/CUMM (130-400); Red Cell Distribution Width 18.9 % (9.3-17.3); White Blood Count 13.4 T/CUMM (4-12)
[2020-09-18 07:55] LABS: Hemoglobin 5.3 GM/DL (12.0-16.0)
[2020-09-18 08:14] LABS: Eosinophils 1 % (0-10); Lymphocytes 18 % (20-55); Platelet Estimate Adequate; Segmented Neutrophils 77 % (50-85); Total Cells Counted 100
[2020-09-18 08:15] LABS: Hypochromasia 2+; Microcytosis 1+; Ovalocytes Slight
[2020-09-18] MEDS: LOSARTAN 50 MG TABLET PO SCH (08:34)
[2020-09-18] MEDS: PANTOPRAZOLE 40 MG TABLET PO SCH (08:34)
[2020-09-18] MEDS: FERROUS SULFATE 325 MG TABLET PO SCH ×3 (08:34→17:16)
[2020-09-18] MEDS: FOLIC ACID 1 MG TABLET PO SCH (08:34)
[2020-09-18] MEDS: MULTIVITAMIN (CENTRUM) TABLET PO SCH (08:34)
[2020-09-18] MEDS: carvediloL 3.125 MG TABLET PO SCH ×2 (08:34→20:46)
[2020-09-18] MEDS: ENOXAPARIN 40 MG/0.4 ML SYRINGE SUBCUT SCH (08:34)
[2020-09-18] MEDS: ONDANSETRON 4 MG/2 ML VIAL IV PRN (10:05)
[2020-09-18] MEDS: INSULIN REGULAR 100 UNIT/ML SUBCUT SCH ×4 (10:06→20:47)
[2020-09-18 16:35] LABS: Basophils % 0.1 % (0.0-0.8); Eosinophils # 0.1 10*3/uL (0.0-0.87); Eosinophils % 0.6 % (0.00-10.9); Hematocrit 25.6 VOL% (35.7-47.0); Hemoglobin 7.7 GM/DL (12.0-16.0); Immature Granulocytes % 1.1 %; Immature Granulocytes Absolute 0.16 #; Lymphocytes # 1.6 10*3/uL (1.4-4.0); Lymphocytes % 10.8 % (21.3-54.2); Mean Corpuscular HGB Conc 30.1 GM/DL (32-36); Mean Corpuscular Volume 78.3 FL (87-102); Mean Platelet Volume 8.3 FL (9.6-12.0); Monocytes % 3.2 % (1.7-12.7); Neutrophils % 84.2 % (38.7-73.9); Platelet Count 350 T/CUMM (130-400); Red Blood Count 3.27 MC/CUMM (3.8-5.5); Red Cell Distribution Width 18.6 % (9.3-17.3); White Blood Count 14.5 T/CUMM (4-12)
[2020-09-18 17:04] LABS: Anisocytosis 1+; Band Neutrophils 4 % (0-10); Hypochromasia 1+; Lymphocytes 13 % (20-55); Microcytosis 1+; Segmented Neutrophils 81 % (50-85); Total Cells Counted 100
[2020-09-18 17:05] LABS: Platelet Estimate Normal
[2020-09-19] MEDS: PIPERACILLIN/TAZOBACTAM 3,375 MG in SODIUM CHLORIDE 0.9% 100 ML IV SCH ×3 (01:15→17:45)
[2020-09-19] MEDS: CLINDAMYCIN INJ 900 MG in PREMIX 1 EACH IV SCH ×2 (05:21→12:29)
[2020-09-19 05:47] LABS: Basophils # 0.1 10*3/uL (0.0-0.2); Basophils % 0.3 % (0.0-0.8); Eosinophils # 0.5 10*3/uL (0.0-0.87); Eosinophils % 2.7 % (0.00-10.9); Hematocrit 28.2 VOL% (35.7-47.0); Hemoglobin 8.4 GM/DL (12.0-16.0); Immature Granulocytes % 3.5 %; Lymphocytes # 1.7 10*3/uL (1.4-4.0); Mean Corpuscular HGB Conc 29.8 GM/DL (32-36); Mean Corpuscular Volume 80.8 FL (87-102); Mean Platelet Volume 8.6 FL (9.6-12.0); Monocytes % 4.3 % (1.7-12.7); Neutrophils % 79.2 % (38.7-73.9); Platelet Count 344 T/CUMM (130-400); Red Blood Count 3.49 MC/CUMM (3.8-5.5); White Blood Count 17.3 T/CUMM (4-12)
[2020-09-19 06:08] LABS: Band Neutrophils 1 % (0-10); Eosinophils 2 % (0-10); Lymphocytes 11 % (20-55); Platelet Estimate Adequate; Segmented Neutrophils 82 % (50-85); Total Cells Counted 100
[2020-09-19 06:09] LABS: Hypochromasia 2+; Microcytosis 1+
[2020-09-19 06:12] LABS: Albumin 1.3 G/DL (3.4-5.0); Bilirubin,Total 0.5 MG/DL (0.2-1.0); Calcium 8.3 MG/DL (8.5-10.1); Osmolality,Calculated 278.8 MOS/KG (273-304); Potassium 3.8 MMOL/L (3.5-5.1)
[2020-09-19] MEDS: INSULIN REGULAR 100 UNIT/ML SUBCUT SCH ×4 (07:47→20:18)
[2020-09-19] MEDS: FERROUS SULFATE 325 MG TABLET PO SCH ×3 (07:47→17:45)
[2020-09-19] MEDS ORDERED: MIDAZOLAM 2 MG/2 ML VIAL ONE (08:07)
[2020-09-19] MEDS ORDERED: fentaNYL 100 MCG/2 ML VIAL ONE (08:07)
[2020-09-19] MEDS ORDERED: propofoL 200 MG/20 ML VIAL IV ONE (08:07)
[2020-09-19] MEDS ORDERED: LIDOCAINE 2% 5 ML VIAL ONE (08:07)
[2020-09-19] MEDS: LOSARTAN 50 MG TABLET PO SCH (08:17)
[2020-09-19] MEDS: FOLIC ACID 1 MG TABLET PO SCH (08:17)
[2020-09-19] MEDS: carvediloL 3.125 MG TABLET PO SCH ×2 (08:17→20:18)
[2020-09-19] MEDS: MULTIVITAMIN (CENTRUM) TABLET PO SCH (08:17)
[2020-09-19] MEDS: PANTOPRAZOLE 40 MG TABLET PO SCH (08:18)
[2020-09-19] MEDS: SODIUM CHLORIDE 0.9% 1,000 ML IV SCH ×2 (09:55→15:33)
[2020-09-19] MEDS: SODIUM BICARB INJ 50 MEQ in SODIUM CHLORIDE 0.45% 1,000 ML IV SCH ×2 (15:33→23:16)
[2020-09-19] MEDS: ACETAMINOPHEN 325 MG TABLET PO PRN (17:30)
[2020-09-20] MEDS: PIPERACILLIN/TAZOBACTAM 3,375 MG in SODIUM CHLORIDE 0.9% 100 ML IV SCH ×2 (02:22→08:32)
[2020-09-20] MEDS: diphenhydrAMINE CAP 25 MG CAPSULE PO PRN ×2 (03:16→08:29)
[2020-09-20 06:06] LABS: Albumin 1.3 G/DL (3.4-5.0); Bilirubin,Total 1.7 MG/DL (0.2-1.0); Calcium 8.2 MG/DL (8.5-10.1); Potassium 4.3 MMOL/L (3.5-5.1); Total Protein 6.7 G/DL (6.4-8.3)
[2020-09-20 06:14] LABS: Risk Ratio 6.82; VLDL CHOLESTEROL 27.2 MG/DL
[2020-09-20 06:17] LABS: Osmolality,Calculated 268.5 MOS/KG (273-304); Potassium 4.3 MMOL/L (3.5-5.1)
[2020-09-20 06:53] LABS: Basophils # 0.1 10*3/uL (0.0-0.2); Basophils % 0.2 % (0.0-0.8); Eosinophils # 0.6 10*3/uL (0.0-0.87); Eosinophils % 2.8 % (0.00-10.9); Hematocrit 24.5 VOL% (35.7-47.0); Hemoglobin 7.2 GM/DL (12.0-16.0); Immature Granulocytes % 1.9 %; Lymphocytes # 2.4 10*3/uL (1.4-4.0); Lymphocytes % 11.6 % (21.3-54.2); Mean Corpuscular HGB Conc 29.4 GM/DL (32-36); Mean Corpuscular Volume 80.1 FL (87-102); Mean Platelet Volume 8.1 FL (9.6-12.0); Monocytes % 4.8 % (1.7-12.7); Neutrophils % 78.7 % (38.7-73.9); Platelet Count 310 T/CUMM (130-400); Red Blood Count 3.06 MC/CUMM (3.8-5.5); Red Cell Distribution Width 19.9 % (9.3-17.3); White Blood Count 20.8 T/CUMM (4-12)
[2020-09-20 07:35] LABS: Band Neutrophils 2 % (0-10); Eosinophils 4 % (0-10); Lymphocytes 11 % (20-55); Platelet Estimate Adequate; Segmented Neutrophils 80 % (50-85); Total Cells Counted 100
[2020-09-20 07:36] LABS: Hypochromasia 1+; Microcytosis 1+
[2020-09-20] MEDS: INSULIN REGULAR 100 UNIT/ML SUBCUT SCH ×4 (08:25→22:19)
[2020-09-20] MEDS: carvediloL 3.125 MG TABLET PO SCH (08:27)
[2020-09-20] MEDS: ENOXAPARIN 40 MG/0.4 ML SYRINGE SUBCUT SCH (08:29)
[2020-09-20] MEDS: FOLIC ACID 1 MG TABLET PO SCH (08:29)
[2020-09-20] MEDS: MULTIVITAMIN (CENTRUM) TABLET PO SCH (08:29)
[2020-09-20] MEDS: PANTOPRAZOLE 40 MG TABLET PO SCH (08:29)
[2020-09-20] MEDS: FERROUS SULFATE 325 MG TABLET PO SCH ×3 (08:29→16:19)
[2020-09-20] MEDS ORDERED: SODIUM CHLORIDE 0.9% 1,000 ML IV PRN (09:26)
[2020-09-20] MEDS: SODIUM HYPOCHLORITE 0.25% IRRIG 473 ML BOTTLE TOP SCH (09:57)
[2020-09-20] MEDS ORDERED: diphenhydrAMINE 2% CREAM 28 GM TUBE TOP PRN (10:07)
[2020-09-20 10:48] LABS: % Iron Saturation 17.8 % (18-50); Ferritin 920.5 ng/ml (8-252)
[2020-09-20 11:43] LABS: Folate 9.2 NG/ML (5.38-24.0)
[2020-09-20] MEDS: NYSTATIN POWDER 15 GM BOTTLE TOP SCH ×2 (11:45→21:59)
[2020-09-20] MEDS: SODIUM BICARB INJ 50 MEQ in SODIUM CHLORIDE 0.45% 1,000 ML IV SCH (12:01)
[2020-09-20] MEDS: LEVOFLOXACIN INJ 500 MG in PREMIX 1 EACH IV SCH (12:01)
[2020-09-20] MEDS ORDERED: SODIUM CHLORIDE 0.9% 500 ML IV ONE (13:09)
[2020-09-20] MEDS: metroNIDAZOLE INJ 500 MG in PREMIX 1 EACH IV SCH ×2 (15:32→21:54)
[2020-09-20 16:00] LABS: Hematocrit 33.4 VOL% (35.7-47.0)
[2020-09-20 16:04] LABS: Hemoglobin 9.4 GM/DL (12.0-16.0)
[2020-09-21 03:19] LABS: Basophils # 0.1 10*3/uL (0.0-0.2); Basophils % 0.3 % (0.0-0.8); Eosinophils # 0.4 10*3/uL (0.0-0.87); Hematocrit 23.5 VOL% (35.7-47.0); Hemoglobin 7.3 GM/DL (12.0-16.0); Immature Granulocytes % 4.5 %; Immature Granulocytes Absolute 0.83 #; Lymphocytes # 2.1 10*3/uL (1.4-4.0); Lymphocytes % 11.1 % (21.3-54.2); Mean Corpuscular HGB Conc 31.1 GM/DL (32-36); Mean Corpuscular Volume 78.9 FL (87-102); Mean Platelet Volume 8.6 FL (9.6-12.0); Monocytes % 4.5 % (1.7-12.7); NRBC # 0.02 10*3/uL; Neutrophils % 77.6 % (38.7-73.9); Platelet Count 323 T/CUMM (130-400); Red Blood Count 2.98 MC/CUMM (3.8-5.5); White Blood Count 18.4 T/CUMM (4-12)
[2020-09-21 04:08] LABS: Band Neutrophils 1 % (0-10); Eosinophils 5 % (0-10); Hypochromasia 2+; Lymphocytes 9 % (20-55); Microcytosis 1+; Platelet Estimate Adequate; Segmented Neutrophils 79 % (50-85); Total Cells Counted 100
[2020-09-21 04:12] LABS: Osmolality,Calculated 275.4 MOS/KG (273-304); Potassium 4.2 MMOL/L (3.5-5.1)
[2020-09-21] MEDS: ACETAMINOPHEN 325 MG TABLET PO PRN (04:47)
[2020-09-21 05:41] LABS: Albumin 1.3 G/DL (3.4-5.0); Bilirubin,Total 0.4 MG/DL (0.2-1.0); Calcium 7.9 MG/DL (8.5-10.1); Osmolality,Calculated 278.2 MOS/KG (273-304); Potassium 4.2 MMOL/L (3.5-5.1); Total Protein 6.7 G/DL (6.4-8.3)
[2020-09-21] MEDS: SODIUM BICARB INJ 50 MEQ in SODIUM CHLORIDE 0.45% 1,000 ML IV SCH ×2 (05:41→16:36)
[2020-09-21] MEDS: metroNIDAZOLE INJ 500 MG in PREMIX 1 EACH IV SCH ×3 (05:42→21:10)
[2020-09-21] MEDS: INSULIN REGULAR 100 UNIT/ML SUBCUT SCH ×4 (07:51→20:51)
[2020-09-21] MEDS ORDERED: LIDOCAINE 1% 20 ML VIAL ONE (08:09)
[2020-09-21] MEDS ORDERED: MIDAZOLAM 2 MG/2 ML VIAL ONE (08:29)
[2020-09-21] MEDS ORDERED: propofoL 200 MG/20 ML VIAL IV ONE (08:29)
[2020-09-21] MEDS ORDERED: fentaNYL 100 MCG/2 ML VIAL ONE (08:29)
[2020-09-21] MEDS ORDERED: LIDOCAINE 2% 5 ML VIAL ONE (08:29)
[2020-09-21] MEDS ORDERED: LACTATED RINGERS 1,000 ML IV SCH (09:00)
[2020-09-21] MEDS ORDERED: ONDANSETRON 4 MG/2 ML VIAL IV PRN (09:35)
[2020-09-21] MEDS ORDERED: PROMETHAZINE INJ 25 MG in SODIUM CHLORIDE 0.9% 50 ML IV PRN (09:35)
[2020-09-21] MEDS ORDERED: MEPERIDINE 25 MG/1 ML VIAL IV PRN (09:35)
[2020-09-21] MEDS ORDERED: HYDROmorphone 2 MG/1 ML VIAL IV PRN (09:35)
[2020-09-21] MEDS: FERROUS SULFATE 325 MG TABLET PO SCH ×3 (10:05→16:34)
[2020-09-21] MEDS: SODIUM HYPOCHLORITE 0.25% IRRIG 473 ML BOTTLE TOP SCH (10:06)
[2020-09-21] MEDS: LEVOFLOXACIN INJ 500 MG in PREMIX 1 EACH IV SCH (11:23)
[2020-09-21] MEDS: NYSTATIN POWDER 15 GM BOTTLE TOP SCH ×2 (11:25→21:10)
[2020-09-21] MEDS: MULTIVITAMIN (CENTRUM) TABLET PO SCH (11:26)
[2020-09-21] MEDS: FOLIC ACID 1 MG TABLET PO SCH (11:26)
[2020-09-21] MEDS: PANTOPRAZOLE 40 MG TABLET PO SCH (11:32)
[2020-09-21 12:16] LABS: Hematocrit 23.1 VOL% (35.7-47.0)
[2020-09-21] MEDS: IRON SUCROSE 300 MG in SODIUM CHLORIDE 0.9% 100 ML IV SCH (13:03)
[2020-09-22] MEDS: metroNIDAZOLE INJ 500 MG in PREMIX 1 EACH IV SCH ×3 (05:26→21:57)
[2020-09-22 05:49] LABS: INR 1.3; PT Patient Result 13.3 SECS (9.8-11.9)
[2020-09-22] MEDS: INSULIN REGULAR 100 UNIT/ML SUBCUT SCH ×4 (08:29→20:45)
[2020-09-22] MEDS: FOLIC ACID 1 MG TABLET PO SCH (09:47)
[2020-09-22] MEDS: MULTIVITAMIN (CENTRUM) TABLET PO SCH (09:47)
[2020-09-22] MEDS: FERROUS SULFATE 325 MG TABLET PO SCH ×3 (09:48→16:26)
[2020-09-22] MEDS: SODIUM BICARB INJ 50 MEQ in SODIUM CHLORIDE 0.45% 1,000 ML IV SCH (09:49)
[2020-09-22] MEDS: PANTOPRAZOLE 40 MG TABLET PO SCH (09:49)
[2020-09-22] MEDS: NYSTATIN POWDER 15 GM BOTTLE TOP SCH ×2 (09:50→20:46)
[2020-09-22] MEDS: SODIUM HYPOCHLORITE 0.25% IRRIG 473 ML BOTTLE TOP SCH (09:50)
[2020-09-22] MEDS ORDERED: SODIUM HYPOCHLORITE 0.25% IRRIG PRN (10:16)
[2020-09-22 10:21] LABS: Basophils # 0.1 10*3/uL (0.0-0.2); Basophils % 0.3 % (0.0-0.8); Eosinophils # 0.3 10*3/uL (0.0-0.87); Eosinophils % 1.3 % (0.00-10.9); Hematocrit 24.9 VOL% (35.7-47.0); Hemoglobin 7.5 GM/DL (12.0-16.0); Immature Granulocytes % 5.7 %; Immature Granulocytes Absolute 1.12 #; Lymphocytes # 2.1 10*3/uL (1.4-4.0); Lymphocytes % 10.5 % (21.3-54.2); Mean Corpuscular HGB Conc 30.1 GM/DL (32-36); Mean Corpuscular Volume 81.9 FL (87-102); Mean Platelet Volume 8.5 FL (9.6-12.0); Monocytes % 3.8 % (1.7-12.7); Neutrophils % 78.4 % (38.7-73.9); Platelet Count 347 T/CUMM (130-400); Red Blood Count 3.04 MC/CUMM (3.8-5.5); Red Cell Distribution Width 20.6 % (9.3-17.3); White Blood Count 19.5 T/CUMM (4-12)
[2020-09-22 10:31] LABS: Calcium 8.7 MG/DL (8.5-10.1); Osmolality,Calculated 274.4 MOS/KG (273-304); Potassium 4.2 MMOL/L (3.5-5.1)
[2020-09-22 10:40] LABS: Band Neutrophils 2 % (0-10); Hypochromasia 1+; Lymphocytes 7 % (20-55); Microcytosis 1+; Platelet Estimate Adequate; Segmented Neutrophils 90 % (50-85); Total Cells Counted 100
[2020-09-22] MEDS: LEVOFLOXACIN INJ 500 MG in PREMIX 1 EACH IV SCH (11:21)
[2020-09-22] MEDS: IRON SUCROSE 300 MG in SODIUM CHLORIDE 0.9% 100 ML IV SCH (11:22)
[2020-09-22] MEDS: SODIUM CHLORIDE 0.9% 1,000 ML IV SCH (13:23)
[2020-09-22] MEDS: CEFEPIME 1,000 MG in SODIUM CHLORIDE 0.9% 100 ML IV SCH ×2 (13:25→20:45)
[2020-09-22] MEDS: MORPHINE 4 MG/1 ML VIAL IV PRN (13:55)
[2020-09-23] MEDS: CEFEPIME 1,000 MG in SODIUM CHLORIDE 0.9% 100 ML IV SCH ×2 (02:07→09:45)
[2020-09-23] MEDS: MORPHINE 4 MG/1 ML VIAL IV PRN (04:55)
[2020-09-23] MEDS: metroNIDAZOLE INJ 500 MG in PREMIX 1 EACH IV SCH ×2 (05:44→17:20)
[2020-09-23 07:19] LABS: Basophils # 0.1 10*3/uL (0.0-0.2); Basophils % 0.4 % (0.0-0.8); Eosinophils # 0.2 10*3/uL (0.0-0.87); Hematocrit 24.2 VOL% (35.7-47.0); Hemoglobin 7.4 GM/DL (12.0-16.0); Lymphocytes # 2.1 10*3/uL (1.4-4.0); Lymphocytes % 10.9 % (21.3-54.2); Mean Corpuscular HGB Conc 30.6 GM/DL (32-36); Mean Corpuscular Volume 81.2 FL (87-102); Mean Platelet Volume 8.5 FL (9.6-12.0); Monocytes % 3.9 % (1.7-12.7); Neutrophils % 75.8 % (38.7-73.9); Platelet Count 315 T/CUMM (130-400); Red Blood Count 2.98 MC/CUMM (3.8-5.5); Red Cell Distribution Width 20.9 % (9.3-17.3); White Blood Count 18.9 T/CUMM (4-12)
[2020-09-23 08:35] LABS: Calcium 8.6 MG/DL (8.5-10.1); Osmolality,Calculated 279.1 MOS/KG (273-304); Potassium 4.1 MMOL/L (3.5-5.1)
[2020-09-23] MEDS: PANTOPRAZOLE 40 MG TABLET PO SCH (08:53)
[2020-09-23] MEDS: FOLIC ACID 1 MG TABLET PO SCH (08:54)
[2020-09-23] MEDS: MULTIVITAMIN (CENTRUM) TABLET PO SCH (08:54)
[2020-09-23] MEDS: FERROUS SULFATE 325 MG TABLET PO SCH ×3 (08:54→17:19)
[2020-09-23 09:05] LABS: Band Neutrophils 1 % (0-10); Eosinophils 1 % (0-10); Hypochromasia 2+; Lymphocytes 13 % (20-55); Platelet Estimate Normal; Segmented Neutrophils 79 % (50-85); Total Cells Counted 100
[2020-09-23 09:06] LABS: Target Cells 2+
[2020-09-23] MEDS: INSULIN REGULAR 100 UNIT/ML SUBCUT SCH ×4 (09:06→20:37)
[2020-09-23] MEDS: NYSTATIN POWDER 15 GM BOTTLE TOP SCH ×2 (09:08→20:39)
[2020-09-23] MEDS: SODIUM HYPOCHLORITE 0.25% IRRIG 473 ML BOTTLE TOP SCH (09:08)
[2020-09-23] MEDS: IRON SUCROSE 300 MG in SODIUM CHLORIDE 0.9% 100 ML IV SCH (11:02)
[2020-09-24] MEDS: CEFEPIME 1,000 MG in SODIUM CHLORIDE 0.9% 100 ML IV SCH ×5 (00:11→18:51)
[2020-09-24] MEDS: metroNIDAZOLE INJ 500 MG in PREMIX 1 EACH IV SCH ×3 (01:59→17:23)
[2020-09-24 06:08] LABS: Basophils # 0.1 10*3/uL (0.0-0.2); Basophils % 0.4 % (0.0-0.8); Eosinophils # 0.4 10*3/uL (0.0-0.87); Eosinophils % 2.1 % (0.00-10.9); Hematocrit 22.9 VOL% (35.7-47.0); Immature Granulocytes % 6.7 %; Immature Granulocytes Absolute 1.29 #; Lymphocytes # 3.6 10*3/uL (1.4-4.0); Lymphocytes % 18.6 % (21.3-54.2); Mean Corpuscular HGB Conc 30.6 GM/DL (32-36); Mean Corpuscular Volume 82.1 FL (87-102); Mean Platelet Volume 8.9 FL (9.6-12.0); Neutrophils % 68.2 % (38.7-73.9); Platelet Count 317 T/CUMM (130-400); Red Blood Count 2.79 MC/CUMM (3.8-5.5); Red Cell Distribution Width 21.2 % (9.3-17.3); White Blood Count 19.2 T/CUMM (4-12)
[2020-09-24 06:29] LABS: Calcium 8.2 MG/DL (8.5-10.1); Osmolality,Calculated 280.5 MOS/KG (273-304); Potassium 3.8 MMOL/L (3.5-5.1)
[2020-09-24] MEDS: IRON SUCROSE 300 MG in SODIUM CHLORIDE 0.9% 100 ML IV SCH (09:43)
[2020-09-24] MEDS: FOLIC ACID 1 MG TABLET PO SCH (09:44)
[2020-09-24] MEDS: MULTIVITAMIN (CENTRUM) TABLET PO SCH (09:44)
[2020-09-24] MEDS: PANTOPRAZOLE 40 MG TABLET PO SCH (09:44)
[2020-09-24] MEDS: FERROUS SULFATE 325 MG TABLET PO SCH ×3 (09:44→17:20)
[2020-09-24] MEDS: SODIUM HYPOCHLORITE 0.25% IRRIG 473 ML BOTTLE TOP SCH (10:50)
[2020-09-24] MEDS: INSULIN REGULAR 100 UNIT/ML SUBCUT SCH ×4 (10:53→22:18)
[2020-09-24] MEDS: NYSTATIN POWDER 15 GM BOTTLE TOP SCH ×2 (10:55→22:17)
[2020-09-24] MEDS ORDERED: TOBRAMYCIN INJ 80 MG in SODIUM CHLORIDE 0.9% 100 ML IV ONE (13:41)
[2020-09-24] MEDS ORDERED: SODIUM CHLORIDE 0.9% 1,000 ML IV PRN (13:53)
[2020-09-24] MEDS ORDERED: AMPICILLIN/SULBACTAM 1,500 MG in SODIUM CHLORIDE 0.9% 100 ML IV SCH (14:00)
[2020-09-24] MEDS ORDERED: ERTAPENEM 1,000 MG in SODIUM CHLORIDE 0.9% 100 ML IV SCH (15:00)
[2020-09-24] MEDS: SODIUM CHLORIDE 0.9% 1,000 ML IV SCH ×2 (17:18→17:19)
[2020-09-25] MEDS: CEFEPIME 1,000 MG in SODIUM CHLORIDE 0.9% 100 ML IV SCH ×2 (00:58→05:23)
[2020-09-25] MEDS: metroNIDAZOLE INJ 500 MG in PREMIX 1 EACH IV SCH ×2 (02:00→11:30)
[2020-09-25] MEDS: SODIUM CHLORIDE 0.9% 1,000 ML IV SCH ×2 (02:10→17:26)
[2020-09-25 05:26] LABS: Basophils # 0.1 10*3/uL (0.0-0.2); Basophils % 0.4 % (0.0-0.8); Eosinophils # 0.3 10*3/uL (0.0-0.87); Eosinophils % 1.7 % (0.00-10.9); Hematocrit 27.3 VOL% (35.7-47.0); Hemoglobin 8.3 GM/DL (12.0-16.0); Immature Granulocytes % 7.2 %; Immature Granulocytes Absolute 1.36 #; Lymphocytes # 3.3 10*3/uL (1.4-4.0); Lymphocytes % 17.6 % (21.3-54.2); Mean Corpuscular HGB Conc 30.4 GM/DL (32-36); Mean Platelet Volume 8.3 FL (9.6-12.0); Monocytes % 4.2 % (1.7-12.7); Neutrophils % 68.9 % (38.7-73.9); Platelet Count 299 T/CUMM (130-400); Red Blood Count 3.25 MC/CUMM (3.8-5.5); White Blood Count 18.9 T/CUMM (4-12)
[2020-09-25 05:48] LABS: Band Neutrophils 6 % (0-10); Eosinophils 3 % (0-10); Hypochromasia 1+; Lymphocytes 15 % (20-55); Segmented Neutrophils 75 % (50-85); Total Cells Counted 100
[2020-09-25 05:49] LABS: Microcytosis 1+; Ovalocytes Slight; Polychromasia Slight
[2020-09-25 06:11] LABS: Calcium 8.2 MG/DL (8.5-10.1); Osmolality,Calculated 285.4 MOS/KG (273-304); Potassium 4.2 MMOL/L (3.5-5.1)
[2020-09-25] MEDS: MULTIVITAMIN (CENTRUM) TABLET PO SCH (09:27)
[2020-09-25] MEDS: INSULIN REGULAR 100 UNIT/ML SUBCUT SCH ×4 (09:27→22:49)
[2020-09-25] MEDS: PANTOPRAZOLE 40 MG TABLET PO SCH (09:27)
[2020-09-25] MEDS: FOLIC ACID 1 MG TABLET PO SCH (09:27)
[2020-09-25] MEDS: FERROUS SULFATE 325 MG TABLET PO SCH ×3 (09:27→17:17)
[2020-09-25] MEDS: SODIUM HYPOCHLORITE 0.25% IRRIG 473 ML BOTTLE TOP SCH (09:54)
[2020-09-25] MEDS: NYSTATIN POWDER 15 GM BOTTLE TOP SCH ×2 (10:36→22:48)
[2020-09-25] MEDS: MEROPENEM 500 MG in SODIUM CHLORIDE 0.9% 100 ML IV SCH ×3 (11:30→23:23)
[2020-09-25] MEDS: carvediloL 3.125 MG TABLET PO SCH (22:49)
[2020-09-26 05:09] LABS: Basophils # 0.1 10*3/uL (0.0-0.2); Basophils % 0.4 % (0.0-0.8); Eosinophils # 0.4 10*3/uL (0.0-0.87); Eosinophils % 2.3 % (0.00-10.9); Hematocrit 26.9 VOL% (35.7-47.0); Hemoglobin 8.2 GM/DL (12.0-16.0); Immature Granulocytes % 7.9 %; Immature Granulocytes Absolute 1.48 #; Lymphocytes # 3.5 10*3/uL (1.4-4.0); Lymphocytes % 18.5 % (21.3-54.2); Mean Corpuscular HGB Conc 30.5 GM/DL (32-36); Mean Corpuscular Volume 85.1 FL (87-102); Mean Platelet Volume 8.3 FL (9.6-12.0); Monocytes % 4.1 % (1.7-12.7); Neutrophils % 66.8 % (38.7-73.9); Platelet Count 277 T/CUMM (130-400); Red Blood Count 3.16 MC/CUMM (3.8-5.5); Red Cell Distribution Width 19.9 % (9.3-17.3); White Blood Count 18.6 T/CUMM (4-12)
[2020-09-26 05:26] LABS: Osmolality,Calculated 283.7 MOS/KG (273-304); Potassium 4.2 MMOL/L (3.5-5.1)
[2020-09-26 05:41] LABS: Band Neutrophils 2 % (0-10); Hypochromasia 1+; Lymphocytes 21 % (20-55); Microcytosis 1+; Ovalocytes Slight; Platelet Estimate Adequate; Segmented Neutrophils 73 % (50-85); Total Cells Counted 100
[2020-09-26] MEDS: MEROPENEM 500 MG in SODIUM CHLORIDE 0.9% 100 ML IV SCH ×4 (05:53→23:54)
[2020-09-26] MEDS ORDERED: propofoL 200 MG/20 ML VIAL IV ONE (08:30)
[2020-09-26] MEDS ORDERED: LIDOCAINE 2% 5 ML VIAL ONE (08:30)
[2020-09-26] MEDS: SODIUM HYPOCHLORITE 0.25% IRRIG 473 ML BOTTLE TOP SCH (08:51)
[2020-09-26] MEDS ORDERED: BISACODYL 5 MG TABLET PO SCH (09:00)
[2020-09-26] MEDS: MULTIVITAMIN (CENTRUM) TABLET PO SCH (09:37)
[2020-09-26] MEDS: carvediloL 3.125 MG TABLET PO SCH ×2 (09:37→22:14)
[2020-09-26] MEDS: FERROUS SULFATE 325 MG TABLET PO SCH ×3 (09:37→16:37)
[2020-09-26] MEDS: NYSTATIN POWDER 15 GM BOTTLE TOP SCH ×2 (09:37→22:16)
[2020-09-26] MEDS: FOLIC ACID 1 MG TABLET PO SCH (09:37)
[2020-09-26] MEDS: INSULIN REGULAR 100 UNIT/ML SUBCUT SCH ×4 (09:38→22:16)
[2020-09-26] MEDS: PANTOPRAZOLE 40 MG TABLET PO SCH (09:38)
[2020-09-26] MEDS: LACTATED RINGERS 1,000 ML IV SCH (10:46)
[2020-09-26] MEDS ORDERED: SODIUM CHLORIDE 0.9% 1,000 ML IV PRN (15:28)
[2020-09-26] MEDS: SODIUM CHLORIDE 0.9% 1,000 ML IV SCH ×2 (16:01→16:38)
[2020-09-26] MEDS: COLLAGENASE OINT 30 GM TUBE TOP SCH (16:01)
[2020-09-26] MEDS ORDERED: POLYETHYLENE GLYCOL 3350/ELECTROLYTES 4,000 ML BOTTLE PO ONE (18:00)
[2020-09-27 01:26] LABS: Hematocrit 31.2 VOL% (35.7-47.0); Hemoglobin 9.2 GM/DL (12.0-16.0)
[2020-09-27] MEDS: MEROPENEM 500 MG in SODIUM CHLORIDE 0.9% 100 ML IV SCH ×4 (05:20→23:46)
[2020-09-27 05:43] LABS: Basophils # 0.1 10*3/uL (0.0-0.2); Basophils % 0.4 % (0.0-0.8); Eosinophils # 0.5 10*3/uL (0.0-0.87); Eosinophils % 2.6 % (0.00-10.9); Hematocrit 32.1 VOL% (35.7-47.0); Hemoglobin 9.6 GM/DL (12.0-16.0); Immature Granulocytes % 4.6 %; Immature Granulocytes Absolute 0.83 #; Lymphocytes # 3.6 10*3/uL (1.4-4.0); Lymphocytes % 19.7 % (21.3-54.2); Mean Corpuscular HGB Conc 29.9 GM/DL (32-36); Mean Corpuscular Volume 85.6 FL (87-102); Mean Platelet Volume 8.4 FL (9.6-12.0); Monocytes % 4.8 % (1.7-12.7); Neutrophils % 67.9 % (38.7-73.9); Platelet Count 319 T/CUMM (130-400); Red Blood Count 3.75 MC/CUMM (3.8-5.5)
[2020-09-27 06:16] LABS: Band Neutrophils 6 % (0-10); Hypochromasia 2+; Lymphocytes 14 % (20-55); Metamyelocytes 2 %; Platelet Estimate Normal; Segmented Neutrophils 69 % (50-85); Total Cells Counted 100
[2020-09-27 06:17] LABS: Acanthocytes Few; Anisocytosis 2+; Macrocytosis 2+
[2020-09-27] MEDS: INSULIN REGULAR 100 UNIT/ML SUBCUT SCH ×4 (07:38→20:52)
[2020-09-27] MEDS: LACTATED RINGERS 1,000 ML IV SCH (09:12)
[2020-09-27] MEDS: MULTIVITAMIN (CENTRUM) TABLET PO SCH (11:57)
[2020-09-27] MEDS: carvediloL 3.125 MG TABLET PO SCH ×2 (11:57→20:52)
[2020-09-27] MEDS: NYSTATIN POWDER 15 GM BOTTLE TOP SCH ×2 (11:57→20:52)
[2020-09-27] MEDS: FERROUS SULFATE 325 MG TABLET PO SCH ×3 (11:57→17:12)
[2020-09-27] MEDS: FOLIC ACID 1 MG TABLET PO SCH (11:57)
[2020-09-27] MEDS: SODIUM HYPOCHLORITE 0.25% IRRIG 473 ML BOTTLE TOP SCH (11:57)
[2020-09-27] MEDS: PANTOPRAZOLE 40 MG TABLET PO SCH (11:58)
[2020-09-27] MEDS: COLLAGENASE OINT 30 GM TUBE TOP SCH (11:58)
[2020-09-27] MEDS ORDERED: LIDOCAINE 2% 5 ML VIAL ONE (14:14)
[2020-09-27] MEDS ORDERED: propofoL 200 MG/20 ML VIAL IV ONE (14:14)
[2020-09-27] MEDS ORDERED: fentaNYL 100 MCG/2 ML VIAL ONE ×2 (14:14→14:41)
[2020-09-27] MEDS ORDERED: MIDAZOLAM 2 MG/2 ML VIAL ONE (14:14)
[2020-09-27] MEDS ORDERED: SEVOFLURANE 1 UNIT/15 MINUTE INH ONE ×2 (14:14→15:06)
[2020-09-27] MEDS ORDERED: ONDANSETRON 4 MG/2 ML VIAL ONE (14:14)
[2020-09-27] MEDS ORDERED: HYDROmorphone 2 MG/1 ML VIAL ONE (15:20)
[2020-09-27] MEDS: HYDROmorphone 2 MG/1 ML VIAL IV PRN ×3 (15:22→15:40)
[2020-09-27] MEDS ORDERED: ONDANSETRON 4 MG/2 ML VIAL IV PRN (15:36)
[2020-09-27] MEDS ORDERED: GLUCAGON 1 MG VIAL IM PRN (16:17)
[2020-09-27] MEDS ORDERED: DEXTROSE 50% 25 GM/50 ML VIAL IV PRN (16:17)
[2020-09-27] MEDS: SODIUM CHLORIDE 0.9% 1,000 ML IV SCH (16:37)
[2020-09-27] MEDS: MORPHINE 4 MG/1 ML VIAL IV PRN ×2 (17:58→23:46)
[2020-09-28] MEDS: MEROPENEM 500 MG in SODIUM CHLORIDE 0.9% 100 ML IV SCH ×4 (05:30→23:00)
[2020-09-28 06:22] LABS: Calcium 8.2 MG/DL (8.5-10.1); Osmolality,Calculated 271.1 MOS/KG (273-304)
[2020-09-28] MEDS: MORPHINE 4 MG/1 ML VIAL IV PRN ×2 (08:32→15:30)
[2020-09-28] MEDS: FOLIC ACID 1 MG TABLET PO SCH (08:33)
[2020-09-28] MEDS: FERROUS SULFATE 325 MG TABLET PO SCH ×3 (08:33→18:22)
[2020-09-28] MEDS: INSULIN REGULAR 100 UNIT/ML SUBCUT SCH ×4 (08:33→20:50)
[2020-09-28] MEDS: carvediloL 3.125 MG TABLET PO SCH ×2 (08:33→20:49)
[2020-09-28] MEDS: MULTIVITAMIN (CENTRUM) TABLET PO SCH (08:34)
[2020-09-28] MEDS: BISACODYL 5 MG TABLET PO SCH ×2 (08:34→17:16)
[2020-09-28] MEDS: PANTOPRAZOLE 40 MG TABLET PO SCH (08:34)
[2020-09-28] MEDS: SODIUM HYPOCHLORITE 0.25% IRRIG 473 ML BOTTLE TOP SCH (08:34)
[2020-09-28] MEDS: COLLAGENASE OINT 30 GM TUBE TOP SCH (08:35)
[2020-09-28] MEDS ORDERED: GLUCAGON 1 MG VIAL IM PRN (08:42)
[2020-09-28] MEDS ORDERED: DEXTROSE 50% 25 GM/50 ML VIAL IV PRN (08:42)
[2020-09-28 08:59] LABS: Basophils # 0.1 10*3/uL (0.0-0.2); Basophils % 0.3 % (0.0-0.8); Eosinophils # 0.4 10*3/uL (0.0-0.87); Hematocrit 32.5 VOL% (35.7-47.0); Immature Granulocytes % 2.5 %; Immature Granulocytes Absolute 0.46 #; Lymphocytes # 2.2 10*3/uL (1.4-4.0); Lymphocytes % 11.8 % (21.3-54.2); Mean Corpuscular HGB Conc 30.8 GM/DL (32-36); Mean Corpuscular Volume 85.3 FL (87-102); Mean Platelet Volume 8.3 FL (9.6-12.0); Monocytes % 5.1 % (1.7-12.7); Neutrophils % 78.3 % (38.7-73.9); Platelet Count 290 T/CUMM (130-400); Red Blood Count 3.81 MC/CUMM (3.8-5.5); Red Cell Distribution Width 18.6 % (9.3-17.3); White Blood Count 18.2 T/CUMM (4-12)
[2020-09-28] MEDS: SODIUM CHLORIDE 0.9% 1,000 ML IV SCH (10:26)
[2020-09-28] MEDS: NYSTATIN POWDER 15 GM BOTTLE TOP SCH ×2 (10:43→20:50)
[2020-09-28] MEDS: LACTATED RINGERS 1,000 ML IV SCH (10:44)
[2020-09-28] MEDS ORDERED: POLYETHYLENE GLYCOL 3350/ELECTROLYTES 4,000 ML BOTTLE PO ONE (18:00)
[2020-09-28] MEDS: diphenhydrAMINE CAP 25 MG CAPSULE PO PRN (20:49)
[2020-09-28] MEDS ORDERED: MAGNESIUM CITRATE 300 ML BOTTLE PO ONE (21:00)
[2020-09-29] MEDS: SODIUM CHLORIDE 0.9% 1,000 ML IV SCH (04:45)
[2020-09-29] MEDS: MEROPENEM 500 MG in SODIUM CHLORIDE 0.9% 100 ML IV SCH ×3 (05:29→17:28)
[2020-09-29] MEDS: LACTATED RINGERS 1,000 ML IV SCH (05:30)
[2020-09-29 07:47] LABS: Basophils % 0.2 % (0.0-0.8); Eosinophils # 0.4 10*3/uL (0.0-0.87); Eosinophils % 2.8 % (0.00-10.9); Hematocrit 27.8 VOL% (35.7-47.0); Hemoglobin 8.4 GM/DL (12.0-16.0); Immature Granulocytes Absolute 0.31 #; Lymphocytes % 19.9 % (21.3-54.2); Mean Corpuscular HGB Conc 30.2 GM/DL (32-36); Mean Corpuscular Volume 86.9 FL (87-102); Mean Platelet Volume 8.1 FL (9.6-12.0); Monocytes % 5.3 % (1.7-12.7); Neutrophils % 69.8 % (38.7-73.9); Platelet Count 261 T/CUMM (130-400); Red Cell Distribution Width 18.6 % (9.3-17.3); White Blood Count 15.3 T/CUMM (4-12)
[2020-09-29 08:06] LABS: Calcium 7.8 MG/DL (8.5-10.1); Osmolality,Calculated 275.7 MOS/KG (273-304); Potassium 4.3 MMOL/L (3.5-5.1)
[2020-09-29] MEDS: COLLAGENASE OINT 30 GM TUBE TOP SCH (08:21)
[2020-09-29] MEDS: INSULIN REGULAR 100 UNIT/ML SUBCUT SCH ×4 (08:22→21:37)
[2020-09-29] MEDS: PANTOPRAZOLE 40 MG TABLET PO SCH (08:22)
[2020-09-29] MEDS: MULTIVITAMIN (CENTRUM) TABLET PO SCH (08:22)
[2020-09-29] MEDS: FOLIC ACID 1 MG TABLET PO SCH (08:22)
[2020-09-29] MEDS: FERROUS SULFATE 325 MG TABLET PO SCH ×3 (08:22→17:28)
[2020-09-29] MEDS: carvediloL 3.125 MG TABLET PO SCH ×2 (08:23→21:37)
[2020-09-29] MEDS: MORPHINE 4 MG/1 ML VIAL IV PRN (09:20)
[2020-09-29] MEDS: NYSTATIN POWDER 15 GM BOTTLE TOP SCH ×2 (09:53→21:38)
[2020-09-29] MEDS: SODIUM HYPOCHLORITE 0.25% IRRIG 473 ML BOTTLE TOP SCH (09:53)
[2020-09-29] MEDS ORDERED: MAGNESIUM SULF RIDER 2 GM in PREMIX 1 EACH IV PRN (13:15)
[2020-09-29] MEDS ORDERED: MAGNESIUM SULF RIDER 4 GM in PREMIX 1 EACH IV PRN (13:15)
[2020-09-29] MEDS ORDERED: POLYETHYLENE GLYCOL 3350/ELECTROLYTES 4,000 ML BOTTLE PO ONE (18:00)
[2020-09-29] MEDS ORDERED: MAGNESIUM CITRATE 300 ML BOTTLE PO ONE (21:00)
[2020-09-30] MEDS: SODIUM CHLORIDE 0.9% 1,000 ML IV SCH ×3 (00:56→22:18)
[2020-09-30] MEDS: MEROPENEM 500 MG in SODIUM CHLORIDE 0.9% 100 ML IV SCH ×5 (01:00→23:53)
[2020-09-30 05:58] LABS: Basophils % 0.3 % (0.0-0.8); Eosinophils # 0.4 10*3/uL (0.0-0.87); Eosinophils % 3.5 % (0.00-10.9); Hematocrit 28.3 VOL% (35.7-47.0); Hemoglobin 8.6 GM/DL (12.0-16.0); Immature Granulocytes Absolute 0.12 #; Lymphocytes # 2.6 10*3/uL (1.4-4.0); Lymphocytes % 21.8 % (21.3-54.2); Mean Corpuscular HGB Conc 30.4 GM/DL (32-36); Mean Platelet Volume 8.4 FL (9.6-12.0); Monocytes % 6.1 % (1.7-12.7); Neutrophils % 67.3 % (38.7-73.9); Platelet Count 281 T/CUMM (130-400); Red Blood Count 3.29 MC/CUMM (3.8-5.5); Red Cell Distribution Width 18.2 % (9.3-17.3); White Blood Count 11.7 T/CUMM (4-12)
[2020-09-30 06:14] LABS: Osmolality,Calculated 273.7 MOS/KG (273-304); Potassium 4.3 MMOL/L (3.5-5.1)
[2020-09-30] MEDS ORDERED: LIDOCAINE 2% 5 ML VIAL ONE (07:52)
[2020-09-30] MEDS ORDERED: propofoL 200 MG/20 ML VIAL IV ONE (07:52)
[2020-09-30] MEDS: INSULIN REGULAR 100 UNIT/ML SUBCUT SCH ×4 (07:55→20:21)
[2020-09-30] MEDS: FERROUS SULFATE 325 MG TABLET PO SCH ×4 (07:55→17:15)
[2020-09-30] MEDS: SODIUM HYPOCHLORITE 0.25% IRRIG 473 ML BOTTLE TOP SCH ×2 (08:06→09:40)
[2020-09-30] MEDS: MULTIVITAMIN (CENTRUM) TABLET PO SCH ×2 (08:06→09:18)
[2020-09-30] MEDS: FOLIC ACID 1 MG TABLET PO SCH ×2 (08:06→09:18)
[2020-09-30] MEDS: carvediloL 3.125 MG TABLET PO SCH ×3 (08:06→20:20)
[2020-09-30] MEDS: NYSTATIN POWDER 15 GM BOTTLE TOP SCH ×3 (08:07→20:20)
[2020-09-30] MEDS: PANTOPRAZOLE 40 MG TABLET PO SCH ×2 (08:07→09:19)
[2020-09-30] MEDS: COLLAGENASE OINT 30 GM TUBE TOP SCH ×2 (08:07→09:40)
[2020-09-30] MEDS ORDERED: GLUCAGON 1 MG VIAL IM PRN (10:42)
[2020-09-30] MEDS ORDERED: DEXTROSE 50% 25 GM/50 ML VIAL IV PRN (10:42)
[2020-09-30] MEDS: LACTATED RINGERS 1,000 ML IV SCH (22:17)
[2020-10-01 05:35] LABS: Basophils # 0.1 10*3/uL (0.0-0.2); Basophils % 0.5 % (0.0-0.8); Eosinophils # 0.4 10*3/uL (0.0-0.87); Eosinophils % 3.6 % (0.00-10.9); Hematocrit 29.5 VOL% (35.7-47.0); Hemoglobin 8.9 GM/DL (12.0-16.0); Immature Granulocytes % 0.8 %; Immature Granulocytes Absolute 0.09 #; Lymphocytes % 18.1 % (21.3-54.2); Mean Corpuscular HGB Conc 30.2 GM/DL (32-36); Mean Corpuscular Volume 86.3 FL (87-102); Platelet Count 303 T/CUMM (130-400); Red Blood Count 3.42 MC/CUMM (3.8-5.5)
[2020-10-01 05:59] LABS: Calcium 8.1 MG/DL (8.5-10.1); Osmolality,Calculated 278.4 MOS/KG (273-304); Potassium 4.3 MMOL/L (3.5-5.1)
[2020-10-01] MEDS: MEROPENEM 500 MG in SODIUM CHLORIDE 0.9% 100 ML IV SCH ×3 (06:06→18:06)
[2020-10-01] MEDS: MULTIVITAMIN (CENTRUM) TABLET PO SCH (08:45)
[2020-10-01] MEDS: FERROUS SULFATE 325 MG TABLET PO SCH ×3 (08:45→16:26)
[2020-10-01] MEDS: FOLIC ACID 1 MG TABLET PO SCH (08:45)
[2020-10-01] MEDS: PANTOPRAZOLE 40 MG TABLET PO SCH (08:45)
[2020-10-01] MEDS: carvediloL 3.125 MG TABLET PO SCH ×2 (08:45→21:10)
[2020-10-01] MEDS: INSULIN REGULAR 100 UNIT/ML SUBCUT SCH ×4 (08:46→21:10)
[2020-10-01] MEDS: SODIUM CHLORIDE 0.9% 1,000 ML IV SCH ×2 (09:36→18:07)
[2020-10-01] MEDS: LACTATED RINGERS 1,000 ML IV SCH (09:36)
[2020-10-01] MEDS: COLLAGENASE OINT 30 GM TUBE TOP SCH (09:37)
[2020-10-01] MEDS: NYSTATIN POWDER 15 GM BOTTLE TOP SCH ×2 (09:37→21:13)
[2020-10-01] MEDS: SODIUM HYPOCHLORITE 0.25% IRRIG 473 ML BOTTLE TOP SCH (09:37)
[2020-10-01] MEDS: ONDANSETRON 4 MG/2 ML VIAL IV PRN (10:30)
[2020-10-01] MEDS ORDERED: PROMETHAZINE 25 MG/1 ML VIAL IM PRN (11:20)
[2020-10-01] MEDS: SIMETHICONE CHEW 125 MG TABLET PO PRN (14:59)
[2020-10-01] MEDS: COLESTIPOL 1 GM TABLET PO SCH (21:10)
[2020-10-02] MEDS: SODIUM CHLORIDE 0.9% 1,000 ML IV SCH ×2 (00:23→14:20)
[2020-10-02] MEDS: MEROPENEM 500 MG in SODIUM CHLORIDE 0.9% 100 ML IV SCH ×4 (00:55→18:02)
[2020-10-02 07:46] LABS: Basophils # 0.1 10*3/uL (0.0-0.2); Basophils % 0.6 % (0.0-0.8); Eosinophils # 0.5 10*3/uL (0.0-0.87); Eosinophils % 4.6 % (0.00-10.9); Hematocrit 29.7 VOL% (35.7-47.0); Hemoglobin 9.2 GM/DL (12.0-16.0); Immature Granulocytes % 0.7 %; Immature Granulocytes Absolute 0.07 #; Lymphocytes # 2.1 10*3/uL (1.4-4.0); Lymphocytes % 20.6 % (21.3-54.2); Mean Corpuscular Volume 84.1 FL (87-102); Mean Platelet Volume 8.2 FL (9.6-12.0); Neutrophils % 68.5 % (38.7-73.9); Platelet Count 297 T/CUMM (130-400); Red Blood Count 3.53 MC/CUMM (3.8-5.5); Red Cell Distribution Width 17.7 % (9.3-17.3); White Blood Count 10.4 T/CUMM (4-12)
[2020-10-02 08:14] LABS: Calcium 8.2 MG/DL (8.5-10.1); Osmolality,Calculated 272.7 MOS/KG (273-304); Potassium 4.1 MMOL/L (3.5-5.1)
[2020-10-02] MEDS: INSULIN REGULAR 100 UNIT/ML SUBCUT SCH ×4 (08:39→21:12)
[2020-10-02] MEDS: COLESTIPOL 1 GM TABLET PO SCH ×2 (09:30→21:11)
[2020-10-02] MEDS: FERROUS SULFATE 325 MG TABLET PO SCH ×3 (09:30→16:55)
[2020-10-02] MEDS: MULTIVITAMIN (CENTRUM) TABLET PO SCH (09:30)
[2020-10-02] MEDS: SIMETHICONE CHEW 125 MG TABLET PO PRN (09:30)
[2020-10-02] MEDS: FOLIC ACID 1 MG TABLET PO SCH (09:30)
[2020-10-02] MEDS: PANTOPRAZOLE 40 MG TABLET PO SCH (09:30)
[2020-10-02] MEDS: carvediloL 3.125 MG TABLET PO SCH ×2 (09:31→21:11)
[2020-10-02] MEDS: SODIUM HYPOCHLORITE 0.25% IRRIG 473 ML BOTTLE TOP SCH (10:50)
[2020-10-02] MEDS: NYSTATIN POWDER 15 GM BOTTLE TOP SCH ×2 (10:50→21:13)
[2020-10-02] MEDS: COLLAGENASE OINT 30 GM TUBE TOP SCH (10:50)
[2020-10-02] MEDS ORDERED: ONDANSETRON 4 MG/2 ML VIAL ONE (11:18)
[2020-10-02] MEDS ORDERED: DEXAMETHASONE 4 MG/1 ML VIAL ONE (11:18)
[2020-10-02] MEDS ORDERED: MIDAZOLAM 2 MG/2 ML VIAL ONE (11:18)
[2020-10-02] MEDS ORDERED: fentaNYL 100 MCG/2 ML VIAL ONE ×3 (11:18→11:56)
[2020-10-02] MEDS ORDERED: propofoL 200 MG/20 ML VIAL IV ONE (11:18)
[2020-10-02] MEDS ORDERED: LIDOCAINE 2% 5 ML VIAL ONE (11:18)
[2020-10-02] MEDS ORDERED: SEVOFLURANE 1 UNIT/15 MINUTE INH ONE ×5 (11:22→12:51)
[2020-10-02] MEDS ORDERED: KETOROLAC 30 MG/1 ML VIAL ONE (11:43)
[2020-10-02] MEDS ORDERED: ACETAMINOPHEN 1,000 MG/100 ML VIAL IV ONE (11:52)
[2020-10-02] MEDS ORDERED: SODIUM CHLORIDE 0.9% 1,000 ML IV ONE (12:24)
[2020-10-02] MEDS ORDERED: PHENYLEPHRINE 1 MG/10 ML SYRINGE IV ONE (12:35)
[2020-10-02] MEDS ORDERED: HYDROmorphone 2 MG/1 ML VIAL IV PRN (13:09)
[2020-10-02] MEDS ORDERED: ONDANSETRON 4 MG/2 ML VIAL IV PRN (13:13)
[2020-10-02] MEDS: HYDROmorphone 2 MG/1 ML VIAL IV PRN ×3 (13:14→15:30)
[2020-10-03] MEDS: HYDROmorphone 2 MG/1 ML VIAL IV PRN ×2 (03:27→09:37)
[2020-10-03] MEDS: MEROPENEM 500 MG in SODIUM CHLORIDE 0.9% 100 ML IV SCH ×3 (03:27→13:54)
[2020-10-03 05:34] LABS: Basophils # 0.1 10*3/uL (0.0-0.2); Basophils % 0.4 % (0.0-0.8); Eosinophils # 0.4 10*3/uL (0.0-0.87); Eosinophils % 3.1 % (0.00-10.9); Hematocrit 23.7 VOL% (35.7-47.0); Hemoglobin 7.1 GM/DL (12.0-16.0); Immature Granulocytes % 0.5 %; Immature Granulocytes Absolute 0.06 #; Lymphocytes # 2.9 10*3/uL (1.4-4.0); Lymphocytes % 24.7 % (21.3-54.2); Mean Corpuscular Volume 87.1 FL (87-102); Mean Platelet Volume 8.4 FL (9.6-12.0); Monocytes % 5.7 % (1.7-12.7); Neutrophils % 65.6 % (38.7-73.9); Platelet Count 308 T/CUMM (130-400); Red Blood Count 2.72 MC/CUMM (3.8-5.5); Red Cell Distribution Width 17.7 % (9.3-17.3); White Blood Count 11.8 T/CUMM (4-12)
[2020-10-03 05:59] LABS: Band Neutrophils 1 % (0-10); Eosinophils 1 % (0-10); Lymphocytes 19 % (20-55); Segmented Neutrophils 76 % (50-85); Total Cells Counted 100
[2020-10-03 06:00] LABS: Hypochromasia 1+; Platelet Estimate Normal
[2020-10-03] MEDS ORDERED: SODIUM CHLORIDE 0.9% 1,000 ML IV PRN ×2 (07:47→09:08)
[2020-10-03] MEDS: FOLIC ACID 1 MG TABLET PO SCH (09:05)
[2020-10-03] MEDS: FERROUS SULFATE 325 MG TABLET PO SCH ×3 (09:05→16:08)
[2020-10-03] MEDS: MULTIVITAMIN (CENTRUM) TABLET PO SCH (09:05)
[2020-10-03] MEDS: COLESTIPOL 1 GM TABLET PO SCH (09:05)
[2020-10-03] MEDS: PANTOPRAZOLE 40 MG TABLET PO SCH (09:05)
[2020-10-03] MEDS: carvediloL 3.125 MG TABLET PO SCH (09:05)
[2020-10-03] MEDS: NYSTATIN POWDER 15 GM BOTTLE TOP SCH (09:06)
[2020-10-03] MEDS: INSULIN REGULAR 100 UNIT/ML SUBCUT SCH ×3 (10:03→16:56)
[2020-10-03] MEDS: SODIUM HYPOCHLORITE 0.25% IRRIG 473 ML BOTTLE TOP SCH (11:11)
[2020-10-03] MEDS: COLLAGENASE OINT 30 GM TUBE TOP SCH (11:11)
[2020-10-03 17:55] VITALS: BP 132/69
== END 2020-10-03 19:40 | DRG 239 ==
LOC: N.ED 14:18 → SUATTDRO 21:07 → N.EDINP 21:07 → N.3E 22:27
PROVIDERS: ADMIT Internal Medicine; ATTEND Family Medicine
PROC: COLONBX (2020-09-30 07:05)

== ENCOUNTER 2021-05-31 06:43 | Inpatient (IN) ==
[2021-05-29 12:40] LABS: Basophils % 0.3 % (0.0-0.8); Eosinophils # 0.2 10*3/uL (0.0-0.87); Eosinophils % 1.4 % (0.00-10.9); Hematocrit 25.5 VOL% (35.7-47.0); Hemoglobin 7.8 GM/DL (12.0-16.0); Immature Granulocytes % 1.2 %; Immature Granulocytes Absolute 0.14 #; Lymphocytes # 2.6 10*3/uL (1.4-4.0); Lymphocytes % 21.6 % (21.3-54.2); Mean Corpuscular HGB Conc 30.6 GM/DL (32-36); Mean Corpuscular Volume 80.4 FL (87-102); Neutrophils % 68.5 % (38.7-73.9); Platelet Count 355 T/CUMM (130-400); Red Blood Count 3.17 MC/CUMM (3.8-5.5); Red Cell Distribution Width 13.4 % (9.3-17.3); White Blood Count 11.9 T/CUMM (4-12)
[2021-05-29 12:56] LABS: Calcium 8.6 MG/DL (8.5-10.1); Osmolality,Calculated 285.2 MOS/KG (273-304); Potassium 3.7 MMOL/L (3.5-5.1)
[2021-05-31] MEDS ORDERED: DIAZEPAM 5 MG TABLET PO ONE (07:58)
[2021-05-31] MEDS ORDERED: FAMOTIDINE 20 MG TABLET PO ONE (07:58)
[2021-05-31] MEDS ORDERED: LACTATED RINGERS 1,000 ML IV SCH (08:00)
[2021-05-31] MEDS ORDERED: fentaNYL 100 MCG/2 ML VIAL ONE (09:33)
[2021-05-31] MEDS ORDERED: MIDAZOLAM 2 MG/2 ML VIAL ONE (09:33)
[2021-05-31] MEDS ORDERED: METOCLOPRAMIDE 10 MG/2 ML VIAL ONE (09:40)
[2021-05-31] MEDS ORDERED: propofoL 200 MG/20 ML VIAL IV ONE (10:20)
[2021-05-31] MEDS ORDERED: ONDANSETRON 4 MG/2 ML VIAL ONE (10:20)
[2021-05-31] MEDS ORDERED: LIDOCAINE 2% 5 ML VIAL ONE (10:20)
[2021-05-31] MEDS ORDERED: SEVOFLURANE 1 UNIT/15 MINUTE INH ONE (10:20)
[2021-05-31] MEDS ORDERED: BISACODYL 5 MG TABLET PO PRN (10:26)
[2021-05-31] MEDS ORDERED: ACETAMINOPHEN 325 MG TABLET PO PRN (10:26)
[2021-05-31] MEDS ORDERED: HYDROmorphone 2 MG/1 ML VIAL IV PRN ×2 (10:26)
[2021-05-31] MEDS ORDERED: ALBUTEROL/IPRATROPIUM 3 ML NEB RESP TX PRN (10:26)
[2021-05-31] MEDS ORDERED: ONDANSETRON 4 MG/2 ML VIAL IV PRN (10:26)
[2021-05-31] MEDS ORDERED: DEXTROSE 50% 25 GM/50 ML VIAL IV PRN ×2 (10:29→15:56)
[2021-05-31] MEDS ORDERED: GLUCAGON 1 MG VIAL IM PRN ×2 (10:29→15:56)
[2021-05-31] MEDS ORDERED: cloNIDine 0.1 MG TABLET PO PRN (10:29)
[2021-05-31] MEDS: PIPERACILLIN/TAZOBACTAM 3,375 MG in SODIUM CHLORIDE 0.9% 100 ML IV SCH ×2 (13:07→17:33)
[2021-05-31] MEDS: FERROUS SULFATE 325 MG TABLET PO SCH ×2 (13:08→16:55)
[2021-05-31] MEDS: CLINDAMYCIN INJ 900 MG/50 ML PREMIX IV SCH (15:57)
[2021-05-31] MEDS: INSULIN LISPRO 100 UNIT/ML SUBCUT SCH ×2 (16:54→21:11)
[2021-05-31] MEDS: carvediloL 3.125 MG TABLET PO SCH (16:55)
[2021-06-01] MEDS: CLINDAMYCIN INJ 900 MG/50 ML PREMIX IV SCH (00:23)
[2021-06-01] MEDS: PIPERACILLIN/TAZOBACTAM 3,375 MG in SODIUM CHLORIDE 0.9% 100 ML IV SCH ×3 (05:07→17:57)
[2021-06-01] MEDS ORDERED: IBUPROFEN 200 MG TABLET PO PRN (05:26)
[2021-06-01] MEDS: ENOXAPARIN 40 MG/0.4 ML SYRINGE SUBCUT SCH (05:37)
[2021-06-01] MEDS: IBUPROFEN 400 MG TABLET PO PRN (05:40)
[2021-06-01 05:59] LABS: Basophils % 0.2 % (0.0-0.8); Eosinophils # 0.2 10*3/uL (0.0-0.87); Hematocrit 26.5 VOL% (35.7-47.0); Immature Granulocytes % 1.4 %; Immature Granulocytes Absolute 0.24 #; Lymphocytes # 1.3 10*3/uL (1.4-4.0); Lymphocytes % 7.8 % (21.3-54.2); Mean Corpuscular HGB Conc 30.2 GM/DL (32-36); Monocytes % 1.6 % (1.7-12.7); Platelet Count 389 T/CUMM (130-400); Red Blood Count 3.23 MC/CUMM (3.8-5.5); Red Cell Distribution Width 13.6 % (9.3-17.3); White Blood Count 16.8 T/CUMM (4-12)
[2021-06-01 06:19] LABS: Calcium 8.4 MG/DL (8.5-10.1); Osmolality,Calculated 285.4 MOS/KG (273-304)
[2021-06-01 06:24] LABS: Band Neutrophils 10 % (0-10); Eosinophils 2 % (0-10); Hypochromasia 1+; Lymphocytes 8 % (20-55); Microcytosis 1+; Platelet Estimate Adequate; Segmented Neutrophils 79 % (50-85); Total Cells Counted 100
[2021-06-01] MEDS: SODIUM HYPOCHLORITE 0.25% IRRIG 473 ML BOTTLE TOP SCH (09:15)
[2021-06-01] MEDS: carvediloL 3.125 MG TABLET PO SCH ×2 (09:23→17:57)
[2021-06-01] MEDS: LOSARTAN 50 MG TABLET PO SCH (09:23)
[2021-06-01] MEDS: PANTOPRAZOLE 40 MG TABLET PO SCH (09:23)
[2021-06-01] MEDS: FOLIC ACID 1 MG TABLET PO SCH (09:23)
[2021-06-01] MEDS: FERROUS SULFATE 325 MG TABLET PO SCH ×3 (09:23→17:57)
[2021-06-01] MEDS: INSULIN LISPRO 100 UNIT/ML SUBCUT SCH ×4 (09:25→21:22)
[2021-06-01] MEDS ORDERED: LACTATED RINGERS 1,000 ML IV ONE (09:57)
[2021-06-02] MEDS: PIPERACILLIN/TAZOBACTAM 3,375 MG in SODIUM CHLORIDE 0.9% 100 ML IV SCH ×2 (02:26→11:52)
[2021-06-02] MEDS: ENOXAPARIN 40 MG/0.4 ML SYRINGE SUBCUT SCH (04:38)
[2021-06-02] MEDS: IBUPROFEN 400 MG TABLET PO PRN (05:55)
[2021-06-02 08:53] LABS: Basophils # 0.1 10*3/uL (0.0-0.2); Basophils % 0.4 % (0.0-0.8); Eosinophils # 0.6 10*3/uL (0.0-0.87); Eosinophils % 2.6 % (0.00-10.9); Hematocrit 24.8 VOL% (35.7-47.0); Hemoglobin 7.5 GM/DL (12.0-16.0); Immature Granulocytes % 7.8 %; Immature Granulocytes Absolute 1.74 #; Lymphocytes # 1.1 10*3/uL (1.4-4.0); Mean Corpuscular HGB Conc 30.2 GM/DL (32-36); Mean Corpuscular Volume 82.7 FL (87-102); Mean Platelet Volume 9.4 FL (9.6-12.0); Monocytes % 1.8 % (1.7-12.7); Neutrophils % 82.4 % (38.7-73.9); Platelet Count 347 T/CUMM (130-400); Red Cell Distribution Width 13.9 % (9.3-17.3); White Blood Count 22.2 T/CUMM (4-12)
[2021-06-02] MEDS ORDERED: SODIUM CHLORIDE 0.9% 1,000 ML IV ONE ×4 (08:54→15:37)
[2021-06-02] MEDS: carvediloL 3.125 MG TABLET PO SCH ×2 (09:01→17:24)
[2021-06-02] MEDS: FERROUS SULFATE 325 MG TABLET PO SCH ×3 (09:01→17:25)
[2021-06-02] MEDS: INSULIN LISPRO 100 UNIT/ML SUBCUT SCH ×4 (09:02→21:16)
[2021-06-02] MEDS: LOSARTAN 50 MG TABLET PO SCH (09:02)
[2021-06-02] MEDS: FOLIC ACID 1 MG TABLET PO SCH (09:02)
[2021-06-02] MEDS: PANTOPRAZOLE 40 MG TABLET PO SCH (09:02)
[2021-06-02 09:44] LABS: Calcium 8.3 MG/DL (8.5-10.1); Osmolality,Calculated 283.1 MOS/KG (273-304); Potassium 4.1 MMOL/L (3.5-5.1)
[2021-06-02] MEDS ORDERED: MAGNESIUM SULF RIDER 2 GM/50 ML PREMIX IV PRN (09:48)
[2021-06-02] MEDS ORDERED: MAGNESIUM SULF RIDER 4 GM/100 ML PREMIX IV PRN (09:48)
[2021-06-02 10:15] LABS: Band Neutrophils 14 % (0-10); Eosinophils 4 % (0-10); Hypochromasia 1+; Lymphocytes 4 % (20-55); Microcytosis 1+; Segmented Neutrophils 76 % (50-85); Total Cells Counted 100
[2021-06-02] MEDS: SODIUM HYPOCHLORITE 0.25% IRRIG 473 ML BOTTLE TOP SCH (10:40)
[2021-06-02] MEDS ORDERED: diphenhydrAMINE 2% CREAM 28 GM TUBE TOP PRN (12:27)
[2021-06-02] MEDS: TERBINAFINE 1% CREAM 12 GM TUBE TOP SCH ×2 (13:33→21:16)
[2021-06-02] MEDS: NYSTATIN 500,000 UNIT/5 ML UDCUP SWISH/SWAL SCH ×3 (13:34→21:16)
[2021-06-02] MEDS: MEROPENEM 500 MG in SODIUM CHLORIDE 0.9% 100 ML IV SCH (13:34)
[2021-06-02] MEDS ORDERED: SODIUM CHLORIDE 0.9% 1,000 ML IV PRN (14:02)
[2021-06-02] MEDS: FLUCONAZOLE 100 MG TABLET PO SCH (16:15)
[2021-06-02] MEDS: SODIUM CHLORIDE 0.9% 1,000 ML IV SCH (20:11)
[2021-06-03] MEDS: SODIUM CHLORIDE 0.9% 1,000 ML IV SCH ×2 (00:06→15:29)
[2021-06-03] MEDS: MEROPENEM 500 MG in SODIUM CHLORIDE 0.9% 100 ML IV SCH ×2 (01:04→15:30)
[2021-06-03 01:45] LABS: Basophils % 0.2 % (0.0-0.8); Eosinophils # 0.6 10*3/uL (0.0-0.87); Eosinophils % 3.1 % (0.00-10.9); Hematocrit 24.9 VOL% (35.7-47.0); Hemoglobin 7.6 GM/DL (12.0-16.0); Immature Granulocytes % 7.8 %; Immature Granulocytes Absolute 1.61 #; Lymphocytes # 1.7 10*3/uL (1.4-4.0); Lymphocytes % 8.1 % (21.3-54.2); Mean Corpuscular HGB Conc 30.5 GM/DL (32-36); Mean Corpuscular Volume 81.6 FL (87-102); Monocytes % 1.6 % (1.7-12.7); Neutrophils % 79.2 % (38.7-73.9); Platelet Count 331 T/CUMM (130-400); Red Blood Count 3.05 MC/CUMM (3.8-5.5); Red Cell Distribution Width 14.4 % (9.3-17.3); White Blood Count 20.5 T/CUMM (4-12)
[2021-06-03 02:05] LABS: Calcium 7.9 MG/DL (8.5-10.1); Osmolality,Calculated 281.1 MOS/KG (273-304)
[2021-06-03 02:14] LABS: Band Neutrophils 1 % (0-10); Eosinophils 4 % (0-10); Lymphocytes 7 % (20-55); Microcytosis 1+; Platelet Estimate Increased; Segmented Neutrophils 87 % (50-85); Total Cells Counted 100
[2021-06-03 02:15] LABS: Polychromasia Few
[2021-06-03 02:16] LABS: Schistocytes Few
[2021-06-03] MEDS: ENOXAPARIN 40 MG/0.4 ML SYRINGE SUBCUT SCH (05:02)
[2021-06-03 05:52] LABS: Amorphous Crystals,Urine Occasional /HPF (Few); Bilirubin,Urine Negative (Negative); Blood, Urine Small mg/dL (Negative); Glucose,Urine (UA) 50 mg/dL (Negative); Ketones,Urine Negative (Negative); Nitrite,Urine Negative (Negative); Protein,Urine 30 MG/DL; RBC,Urine 12 /HPF (0-4); Squamous Epithelial Cell,Urine Occasional /HPF (0-10); Urine Appearance CLOUDY (Clear); Urine Color Amber (Yellow); Urine Specific Gravity 1.024 (1.001-1.035)
[2021-06-03] MEDS ORDERED: SODIUM CHLORIDE 0.9% 1,000 ML IV PRN (07:42)
[2021-06-03] MEDS: carvediloL 3.125 MG TABLET PO SCH ×2 (08:45→17:18)
[2021-06-03] MEDS: INSULIN LISPRO 100 UNIT/ML SUBCUT SCH ×4 (08:45→21:22)
[2021-06-03] MEDS: FOLIC ACID 1 MG TABLET PO SCH (09:15)
[2021-06-03] MEDS: FLUCONAZOLE 100 MG TABLET PO SCH (09:15)
[2021-06-03] MEDS: FERROUS SULFATE 325 MG TABLET PO SCH ×3 (09:16→17:18)
[2021-06-03] MEDS: NYSTATIN 500,000 UNIT/5 ML UDCUP SWISH/SWAL SCH ×4 (09:17→21:21)
[2021-06-03] MEDS: PANTOPRAZOLE 40 MG TABLET PO SCH (09:18)
[2021-06-03] MEDS: TERBINAFINE 1% CREAM 12 GM TUBE TOP SCH ×2 (09:18→21:22)
[2021-06-03] MEDS: SODIUM HYPOCHLORITE 0.25% IRRIG 473 ML BOTTLE TOP SCH (15:29)
[2021-06-04] MEDS: MEROPENEM 500 MG in SODIUM CHLORIDE 0.9% 100 ML IV SCH ×2 (00:42→12:23)
[2021-06-04] MEDS: ENOXAPARIN 40 MG/0.4 ML SYRINGE SUBCUT SCH (05:13)
[2021-06-04] MEDS: SODIUM CHLORIDE 0.9% 1,000 ML IV SCH ×4 (05:16→20:39)
[2021-06-04 05:58] LABS: Basophils # 0.1 10*3/uL (0.0-0.2); Basophils % 0.3 % (0.0-0.8); Eosinophils # 0.5 10*3/uL (0.0-0.87); Eosinophils % 2.4 % (0.00-10.9); Hematocrit 27.1 VOL% (35.7-47.0); Hemoglobin 8.4 GM/DL (12.0-16.0); Immature Granulocytes % 2.4 %; Immature Granulocytes Absolute 0.45 #; Lymphocytes % 10.8 % (21.3-54.2); Mean Corpuscular Volume 81.9 FL (87-102); Mean Platelet Volume 8.8 FL (9.6-12.0); Monocytes % 2.2 % (1.7-12.7); Neutrophils % 81.9 % (38.7-73.9); Platelet Count 331 T/CUMM (130-400); Red Blood Count 3.31 MC/CUMM (3.8-5.5); Red Cell Distribution Width 14.6 % (9.3-17.3); White Blood Count 18.9 T/CUMM (4-12)
[2021-06-04 06:10] LABS: Protein/Creatinine Ratio,Urine 1.5 RATIO
[2021-06-04 06:16] LABS: Calcium 8.6 MG/DL (8.5-10.1); Osmolality,Calculated 288.7 MOS/KG (273-304); Potassium 4.1 MMOL/L (3.5-5.1)
[2021-06-04 06:21] LABS: Band Neutrophils 1 % (0-10); Eosinophils 1 % (0-10); Hypochromasia 1+; Lymphocytes 9 % (20-55); Microcytosis 1+; Platelet Estimate Adequate; Segmented Neutrophils 88 % (50-85); Total Cells Counted 100
[2021-06-04] MEDS: INSULIN LISPRO 100 UNIT/ML SUBCUT SCH ×4 (08:35→21:37)
[2021-06-04] MEDS: FERROUS SULFATE 325 MG TABLET PO SCH ×3 (09:36→16:08)
[2021-06-04] MEDS: NYSTATIN 500,000 UNIT/5 ML UDCUP SWISH/SWAL SCH ×4 (09:36→20:39)
[2021-06-04] MEDS: carvediloL 3.125 MG TABLET PO SCH ×2 (09:36→16:07)
[2021-06-04] MEDS: PANTOPRAZOLE 40 MG TABLET PO SCH (09:36)
[2021-06-04] MEDS: FOLIC ACID 1 MG TABLET PO SCH (09:36)
[2021-06-04] MEDS: TERBINAFINE 1% CREAM 12 GM TUBE TOP SCH ×2 (09:37→20:40)
[2021-06-04] MEDS: SODIUM HYPOCHLORITE 0.25% IRRIG 473 ML BOTTLE TOP SCH (09:37)
[2021-06-05] MEDS: MEROPENEM 500 MG in SODIUM CHLORIDE 0.9% 100 ML IV SCH (00:51)
[2021-06-05 05:15] LABS: Basophils # 0.1 10*3/uL (0.0-0.2); Basophils % 0.7 % (0.0-0.8); Eosinophils # 0.3 10*3/uL (0.0-0.87); Eosinophils % 2.2 % (0.00-10.9); Hematocrit 27.6 VOL% (35.7-47.0); Hemoglobin 8.5 GM/DL (12.0-16.0); Immature Granulocytes % 5.3 %; Immature Granulocytes Absolute 0.73 #; Lymphocytes # 1.9 10*3/uL (1.4-4.0); Lymphocytes % 13.7 % (21.3-54.2); Mean Corpuscular HGB Conc 30.8 GM/DL (32-36); Mean Corpuscular Volume 82.9 FL (87-102); Mean Platelet Volume 8.4 FL (9.6-12.0); Monocytes % 3.8 % (1.7-12.7); Neutrophils % 74.3 % (38.7-73.9); Platelet Count 301 T/CUMM (130-400); Red Blood Count 3.33 MC/CUMM (3.8-5.5); Red Cell Distribution Width 14.9 % (9.3-17.3); White Blood Count 13.8 T/CUMM (4-12)
[2021-06-05] MEDS: ENOXAPARIN 40 MG/0.4 ML SYRINGE SUBCUT SCH (05:29)
[2021-06-05] MEDS: SODIUM CHLORIDE 0.9% 1,000 ML IV SCH (05:29)
[2021-06-05 05:40] LABS: Hypochromasia 1+; Microcytosis 1+
[2021-06-05 05:57] LABS: Calcium 8.8 MG/DL (8.5-10.1); Osmolality,Calculated 301.8 MOS/KG (273-304); Potassium 4.1 MMOL/L (3.5-5.1)
[2021-06-05] MEDS: PANTOPRAZOLE 40 MG TABLET PO SCH (08:41)
[2021-06-05] MEDS: TERBINAFINE 1% CREAM 12 GM TUBE TOP SCH (08:41)
[2021-06-05] MEDS: FERROUS SULFATE 325 MG TABLET PO SCH ×2 (08:41→11:53)
[2021-06-05] MEDS: carvediloL 3.125 MG TABLET PO SCH (08:41)
[2021-06-05] MEDS: NYSTATIN 500,000 UNIT/5 ML UDCUP SWISH/SWAL SCH (08:41)
[2021-06-05] MEDS: INSULIN LISPRO 100 UNIT/ML SUBCUT SCH ×2 (08:41→11:53)
[2021-06-05] MEDS: FOLIC ACID 1 MG TABLET PO SCH (08:41)
[2021-06-05] MEDS ORDERED: SODIUM CHLORIDE 0.9% 1,500 ML IV ONE (09:40)
[2021-06-05] MEDS ORDERED: MEROPENEM 500 MG in SODIUM CHLORIDE 0.9% 100 ML IV SCH (11:00)
[2021-06-05] MEDS: SODIUM HYPOCHLORITE 0.25% IRRIG 473 ML BOTTLE TOP SCH (11:45)
[2021-06-05 11:57] VITALS: BP 153/78
== END 2021-06-05 13:30 | disposition home health service (06) | DRG 854 ==
LOC: N.OR 06:43 → N.3E 06:43 → N.SDSINP 06:49 → N.3E 12:29
PROVIDERS: ADMIT Surgery; ATTEND Surgery